=== PATIENT | female | born 1950 ===

== ENCOUNTER 2017-11-01 10:29 | Inpatient (IN) | payer OTHER ==
[~2017-11-01] VITALS: Ht 157.5 cm; Wt 75.9 kg
[2017-11-01 11:14] LABS: ABSOLUTE BASOPHIL COUNT 0 /CUMM (0.0-0.2); ABSOLUTE EOSINOPHIL COUNT 0.3 /CUMM (0.0-0.7); ABSOLUTE GRANULOCYTE CT 7.8 /CUMM (1.4-6.5); ABSOLUTE LYMPH COUNT 0.9 /CUMM (1.2-3.4); ABSOLUTE MONOCYTE COUNT 0.4 /CUMM (0.10-0.60); BASOPHIL % 0.1 % (0.0-2.0); EOSINOPHIL % 3.3 % (0-5); GRANULOCYTE % 82.9 % (42.2-75.2); HEMATOCRIT 34.3 % (37-47); MEAN CORPUSCULAR HGB 28.4 PG (27.0-31.0); MEAN CORPUSCULAR HGB CONC 33.3 G/DL (33.0-37.0); MEAN CORPUSCULAR VOLUME 85.2 FL (81.0-99.0); PLATELET COUNT 227 /CUMM (130-400); RBC DISTRIBUTION WIDTH 13.3 % (11.5-14.5); RED BLOOD CELL CT 4.03 /CUMM (4.20-5.40); WHITE BLOOD CELL COUNT 9.4 /CUMM (4.8-10.8)
--- NOTE | 2017-11-01 11:40 | RADIOLOGY REPORT ---
EXAMINATION: XR CHEST CLINICAL INFORMATION: Shortness of breath. COMPARISON: None TECHNIQUE: 2 views of the chest were obtained. FINDINGS: There are small bilateral right greater than left pleural effusions with adjacent airspace opacities most suggestive of atelectasis. There are increased interstitial markings suggesting mild interstitial edema. No definite consolidation to suggest infiltrate. The cardiomediastinal silhouette is enlarged. There is a right-sided dual-lead cardiac pacemaker in place. No pneumothorax. No acute osseous abnormalities. IMPRESSION: Small pleural effusions, right greater than left with mild pulmonary edema.
[2017-11-01] MEDS ORDERED: FUROSEMIDE40 M1 PO (14:42)
[2017-11-01] MEDS ORDERED: COZAAR50 M1 PO (14:43)
[2017-11-01] MEDS ORDERED: BISOPROLOL FUMA10 M1 PO (14:43)
[2017-11-01] MEDS ORDERED: GLIMEPIRIDE2 MG PO (14:44)
[2017-11-01] MEDS ORDERED: LANTUS SOL100 UNIT/1 SC (14:44)
[2017-11-01] MEDS ORDERED: INSULIN HUMAN SC (14:46)
--- NOTE | 2017-11-01 14:50 | ED GENERAL ADULT ---
History of Present Illness General Chief Complaint: Dyspnea (COPD, CHF, Other) Stated Complaint: SOB Source: patient, family, heating and ventilating tender Exam Limitations: no limitations Vital Signs & Intake/Output Vital Signs & Intake/Output Vital Signs Date Time Temp Pulse Resp B/P B/P Pulse O2 O2 Flow FiO2 Mean Ox Delivery Rate 11/06 1015 92 Room Air Room Air 11/06 0946 88 Room Air Room Air 11/06 0938 71 126/56 11/06 0938 71 126/56 11/06 0800 92 Nasal Room Air Cannula 11/06 0652 98.1 69 20 146/67 92 Room Air ED Intake and Output 11/07 0000 11/06 1200 Intake Total 200 Output Total 250 Balance -50 Intake, IV 0 Intake, Oral 200 Number 0 Bowel Movements Output, Urine 250 Allergies Coded Allergies: No Known Allergies (11/01/17) Triage Note: 67 YO FEMALE TO TRIAGE WITH DAUGHTER FOR EVAL OF SOB AND CHEST PAIN. PT PRIMARILY WOLOF SPEAKING DAUGHTER HERE TO TRANSLATE. STATES CHEST PAIN GOES INTO BACK. PER DAUGHTER "WE THINK SHE HAS A LUNG INFECTION" +DRY COUGH. PT TO [facility] FOR EKG Triage Nurses Notes Reviewed? yes HPI: 67 yo F with a pmhx sig for heart disease (unable to elaborate), PM placement, DM, htn presents to the ED with chest pain, cough, fever x 1 week, worsening. + fever to 38+ 2 days ago, none since. Has had cough. Increasing chest pain with exertion and cough. +SOB. Increased leg swelling as well (Shauna LAZO,Luanne) Reconcile Medications Amlodipine Besylate (Norvasc) 5 MG TABLET 1 TAB PO DAILY HTN . Atorvastatin Calcium (Lipitor) 10 MG TABLET 1 TAB PO DAILY HLD . Bisoprolol Fumarate 10 MG TABLET 1 TAB PO BID HEART . Furosemide 40 MG TABLET 1 TAB PO BID CHF . Glimepiride 2 MG TABLET 1 TAB PO DAILY DIABETES (Reported) Insulin Glargine,Hum.rec.anlog (Lantus Solostar) 100 UNIT/ML (3 ML) INSULN.PEN 20 UNIT SC QPM DIABETES (Reported) [INSULIN HUMAN] 10 UNITS SC BID DIABETES (Reported) Losartan Potassium (Cozaar) 50 MG TABLET 1 TAB PO BID HEART (Alvaro LAZO,Yariel Robert) Past History Travel History Traveled to [place] past 21 day No Medical History Any Pertinent Medical History? see below for history Cardiovascular: hypertension Endocrine: diabetes Surgical History Surgical History: non-contributory Psychosocial History What is your primary language Liberian Tobacco Use: Never used Family History Hx Contributory? No (Luanne Villatoro MD) Review of Systems Review of Systems Constitutional: Reports: chills, fever, weakness. Respiratory: Reports: cough, short of breath. Cardiovascular: Reports: chest pain, edema. GI: Reports: abdominal pain, distention, nausea, vomiting. (Luanne Villatoro MD) Physical Exam Physical Exam General Appearance: well developed/nourished Head: atraumatic Eyes: Bilateral: normal appearance. Ears, Nose, Throat: normal ENT inspection Neck: supple Respiratory: normal breath sounds, no respiratory distress, quiet respiration Cardiovascular: edema Extremities: pedal edema, swelling Core Measures ACS in differential dx? Yes CVA/TIA Diagnosis: No Sepsis Present: No Sepsis Focused Exam Completed? No (Luanne Villatoro MD) Progress Differential Diagnoses I considered the following diagnoses in my evaluation of the patient: [ liver failurek, kidney failure, pna, acs, chf] Plan of Care: Orders Procedure Date/time Status Discharge Patient 11/06 UNK Active MISSING MEDICATION FORM 11/06 UNK Active Laboratory Tests 11/06/17 0630: Anion Gap 9, Estimated GFR 49 L, BUN/Creatinine Ratio 40.9 H, Magnesium 2.1 Initial ED EKG: pacemaker rhythm, RBBB Repeat EKG: unchanged Comments: Patient with infectious URI sx in setting of pleural effusion and signs/sx of CHF. No OP follow up, will require admission given this puts patient at risk of sudden decoimpensation. Given lasix, abx. Needs inpatient care for effusions and clinical pna. Cultures were drawn (Luanne Villatoro MD) Departure Departure Disposition: STILL A PATIENT Condition: Stable Clinical Impression Primary Impression: Fluid overload Referrals: Aria Graves MD (PCP/Family) Departure Forms: Customer Survey General Discharge Information Admission Note Spoke With: Robert Ivan MD Documentation of Exam: Documentation of any treatments & extenuating circumstances including Concerns Regarding Discharge (functional status, medication knowledge or non-compliance, living conditions, etc.) that warrant an admission rather than observation: bialteral pleural effusions, signs of fluid overload wihtout ability to follow up as ooutpatient (patient from [facility], here since last week). Also with pneumonia with elevated CURB 65 score (age and BUN) which has demonstrated increased mortality in outpatient setting. (Luanne Villatoro MD) Departure Prescriptions: Current Visit Scripts Bisoprolol Fumarate 1 TAB PO BID #60 TAB . Losartan Potassium (Cozaar) 1 TAB PO BID #60 TAB Furosemide 1 TAB PO BID #60 TAB . Atorvastatin Calcium (Lipitor) 1 TAB PO DAILY #30 TAB . Amlodipine Besylate (Norvasc) 1 TAB PO DAILY #30 TAB . PA/CLOTH FINISHER Co-Sign Statement Statement: ED Attending supervision documentation- [x] I saw and evaluated the patient. I have also reviewed all the pertinent lab results and diagnostic results. I agree with the findings and the plan of care as documented in the PA's/CLOTH FINISHER's documentation. [] I have reviewed the ED Record and agree with the PA's/CLOTH FINISHER's documentation. [] Additions or exceptions (if any) to the PAs/CLOTH FINISHER's note and plan are summarized below: [] (Alvaro LAZO,Yariel Robert) Critical Care Note Critical Care Note Critical Care Time: non-applicable (Luanne Villatoro MD) ([facility]) Furosemide 40 MG 0800 & 1700 11/01 1700 AC 11/02 (Lasix) 1713 Insulin Aspart 0 TIDAC/HS 11/01 1700 AC 11/02 (NovoLOG) 2135 Laboratory Tests 11/02/17 0713: Anion Gap 10, Estimated GFR > 60, BUN/Creatinine Ratio 27.5 H, Triglycerides 105, Cholesterol 185, LDL Cholesterol, Calc 131 H, HDL Cholesterol 33 L, Cholesterol/HDL Ratio 6 H, CBC w Diff NO MAN DIFF REQ, RBC 4.12 L, MCV 84.4, MCH 27.9, MCHC 33.1, RDW 13.7, MPV 10.4, Gran % 60.6, Lymphocytes % 19.2 L, Monocytes % 9.8 H, Eosinophils % 9.9 H, Basophils % 0.5, Absolute Granulocytes 3.4, Absolute Lymphocytes 1.1 L, Absolute Monocytes 0.6, Absolute Eosinophils 0.6, Absolute Basophils 0 Initial ED EKG: pacemaker rhythm, RBBB Repeat EKG: unchanged Comments: Patient with infectious URI sx in setting of pleural effusion and signs/sx of CHF. No OP follow up, will require admission given this puts patient at risk of sudden decoimpensation. Given lasix, abx. Needs inpatient care for effusions and clinical pna. Cultures were drawn Departure Departure Disposition: STILL A PATIENT Condition: Stable Clinical Impression Primary Impression: Fluid overload Referrals: Aria Graves MD (PCP/Family) Departure Forms: Customer Survey General Discharge Information Admission Note Spoke With: Robert Ivan MD Documentation of Exam: Documentation of any treatments & extenuating circumstances including Concerns Regarding Discharge (functional status, medication knowledge or non-compliance, living conditions, etc.) that warrant an admission rather than observation: bialteral pleural effusions, signs of fluid overload wihtout ability to follow up as ooutpatient (patient from [facility], here since last week). Also with pneumonia with elevated CURB 65 score (age and BUN) which has demonstrated increased mortality in outpatient setting. Critical Care Note Critical Care Note Critical Care Time: non-applicable Urine Urobilinogen 0.2, Ur Leukocyte Esterase TRACE H, Ur Microscopic SEDIMENT EXAMINED, Urine RBC RARE, Urine WBC 1-3 H, Ur Epithelial Cells RARE, Urine Bacteria RARE H, Urine Hemoglobin SMALL H, Urine Glucose NEG 11/01/17 1626: Troponin I Cancelled 11/01/17 1105: Anion Gap 12, Estimated GFR > 60, BUN/Creatinine Ratio 31.3 H, Glucose 339 H, Hemoglobin A1c Pending, Calcium 9.5, Total Bilirubin 0.8, AST 26, ALT 16, Alkaline Phosphatase 76, Troponin I 0.02, Hyh-D-Yyatuohntop Pept 8300 H, Total Protein 7.3, Albumin 3.7, Globulin 3.6, Albumin/Globulin Ratio 1.0 L, TSH 0.524 , Free T4 1.90, CBC w Diff NO MAN DIFF REQ, RBC 4.03 L, MCV 85.2, MCH 28.4, MCHC 33.3, RDW 13.3, MPV 10.0, Gran % 82.9 H, Lymphocytes % 9.4 L, Monocytes % 4.3, Eosinophils % 3.3, Basophils % 0.1, Absolute Granulocytes 7.8 H, Absolute Lymphocytes 0.9 L, Absolute Monocytes 0.4, Absolute Eosinophils 0.3, Absolute Basophils 0 Microbiology 11/01 1631 URINE ROUT: Urine Culture - RECD 11/01 1612 LOWER RESP: Respiratory Culture - COLB 11/01 1612 LOWER RESP: Gram Stain - COLB 11/01 1608 BLOOD: Blood Culture - RECD 11/01 1601 BLOOD: Blood Culture - RECD Comments: Patient with infectious URI sx in setting of pleural effusion and signs/sx of CHF. No OP follow up, will require admission given this puts patient at risk of sudden decoimpensation. Given lasix, abx. Needs inpatient care for effusions and clinical pna. Cultures were drawn Departure Departure Disposition: STILL A PATIENT Condition: Stable Clinical Impression Primary Impression: Fluid overload Referrals: Aria Graves MD (PCP/Family) Departure Forms: Customer Survey General Discharge Information Admission Note Documentation of Exam: Documentation of any treatments & extenuating circumstances including Concerns Regarding Discharge (functional status, medication knowledge or non-compliance, living conditions, etc.) that warrant an admission rather than observation: bialteral pleural effusions, signs of fluid overload wihtout ability to follow up as ooutpatient (patient from [facility], here since last week). Also with pneumonia with elevated CURB 65 score (age and BUN) which has demonstrated increased mortality in outpatient setting.
--- NOTE | 2017-11-01 15:06 | History & Physical ---
[facility]: General Information and HPI MD Statement: I have seen and personally examined KIMI YU and documented this H&P. The patient is a 67 year old F who presented with a patient stated chief complaint of shortness of breath, cough, chills, chest pain and generalized weakness for 1 week.[]. 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 Patient was brought to ED by her daughter and patient is [place] having language barrier. Patient refused drilling field specialist for communication. Patient reported that she was in her usual state of health one-week back when she noticed chills, fever and progressive worsening shortness of breath with productive cough and chest pain. According the patient had shortness of breath has been worsened, on minimal exertion she is feeling short of breath. She also having progressively worsening cough with yellow color sputum. Patient reported fever and maximum temperature went to 38. Patient reported pain in the chest, pressure-like, radiating to back and in the shoulder that worsened with cough and not relieved by rest or medications. Patient also noticed leg swelling that is progressively worsening. She reported that she is not compliant with low- salt diet and not have cooked at home she eats it. She also reported that she used to use 2 pillows at nighttime but for last 1 week she is using 3 pillows. Patient also endorsed that sometimes she has to wake up at nighttime and will probably end of to get some fresh air as she feels short of breath. Patient also reported generalized weakness for last 1 week that's progressively worsening. Patient denied palpitation, nausea, vomiting, abdominal pain, lightheadedness, sick contact, take bite, blood in stool, blood in urine and dysuria. According the patient she had [place] in August 2016 in [facility] and permanent pacemaker was placed. Patient denied stent placement. Patient reported that she is compliant to her medications. She is living with her daughter at home. Patient reported that one of her brother has heart problem. She denied any surgeries in the past. Patient is following Dr. Graves in [place] who is her primary care physician. ED course: Vitals: Temperature 98.6, pulse 84, respiratory rate 18, blood pressure 179/68, oxygen saturation 91% on room air. Labs: WBC count 9.4, hemoglobin 11.4, hematocrit 34.3, platelet count 227, sodium 138, potassium 5.2, BUN 25, creatinine 0.8, anion gap 12, BUNs/creatinine ratio 31.3, glucose 339, calcium 9.5, AST 26, ALT 16, alkaline phosphatase 76, troponin 0.02, proBNP 8300, albumin 3.7 Allergies/Medications Allergies: Coded Allergies: No Known Allergies (11/01/17) Home Med list Bisoprolol Fumarate 10 MG TABLET 1 TAB PO BID HEART (Reported) Furosemide 40 MG TABLET 1 TAB PO DAILY WATER RETENTION (Reported) Glimepiride 2 MG TABLET 1 TAB PO DAILY DIABETES (Reported) Insulin Glargine,Hum.rec.anlog (Lantus Solostar) 100 UNIT/ML (3 ML) INSULN.PEN 20 UNIT SC QPM DIABETES (Reported) [INSULIN HUMAN] 10 UNITS SC BID DIABETES (Reported) Losartan Potassium (Cozaar) 50 MG TABLET 1 TAB PO BID HEART (Reported) Past History Travel History Traveled to [place] past 21 day No Medical History Cardiovascular: hypertension Endocrine: diabetes Review of Systems Review of Systems Constitutional: Reports: chills, fever, weakness. EENTM: Reports: no symptoms. Cardiovascular: Reports: chest pain. Denies: palpitations, syncope. Respiratory: Reports: cough, short of breath, sputum production. Denies: wheezing. GI: Denies: abdominal pain, constipation, diarrhea, nausea, vomiting. Genitourinary: Denies: discharge, frequency. Musculoskeletal: Reports: see HPI. Neurological/Psychological: Reports: no symptoms. Exam & Diagnostic Data Last 24 Hrs of Vital Signs/I&O Vital Signs Date Time Temp Pulse Resp B/P B/P Pulse O2 O2 Flow FiO2 Mean Ox Delivery Rate 11/01 1511 162/70 11/01 1303 97.0 70 26 183/68 93 Room Air 11/01 1037 98.6 84 18 179/68 91 Room Air Intake & Output 11/01 1600 11/01 0800 11/01 0000 Intake Total 0 Output Total Balance 0 Intake, Oral 0 Patient 160 lb Weight Weight Reported by Patient Measurement Method Physical Exam General Appearance Alert, Oriented X3, Cooperative Skin Temp/Moisture Exam: Warm/Dry Sepsis Skin Exam (color): Normal for Ethnicity HEENT Atraumatic, PERRLA, EOMI Neck Supple, JVD Cardiovascular Normal S1, Normal S2, systolic murmur in aortic area Lungs BIBASILAR CRACKLES Abdomen Soft, No Tenderness Neurological Normal Speech, Strength at 5/5 X4 Ext, Normal Tone Extremities B/L PEDAL EDEMA Assessment/Plan Assessment: 67-year-old female, nonsmoker with past medical history of hypertension, congestive heart failure, [place] status post permanent pacemaker in [facility] in August 2016 and hyperlipidemia came to ED with chief complaint of fever, chills, shortness of breath with productive cough and chest pain for last 1 week. Seeing the patient on telemetry floor following problems. Acute on chronic heart failure: -As patient reported that she had heart failure in the past and she had some fluid in the lung when she was in [facility]. And patient is on diuretics. We are not sure if it is diastolic or systolic heart failure. -Her proBNP is 8300 and imaging studies showed bilateral pleural effusions and mild pulmonary edema. -Continue IV Lasix 40 mg twice a day -Continue losartan 50 mg twice a day -Continue bisoprolol 10 mg twice a day -Monitor her input and output and daily weight -Echocardiogram -Follow up cardiology recommendations. -Follow up TSH and free T4. Possible pneumonia: -As patient reported fever and chills for last 1 week, possibly patient has community-acquired pneumonia. Her WBC count is within normal limits and she is afebrile on presentation. -Patient received 1 dose of ceftriaxone and doxycycline in ED -We will start her on ceftriaxone and azithromycin to cover her for community- acquired pneumonia. -Follow-up blood cultures -Follow-up sputum cultures Uncontrolled diabetes: -On admission her blood sugar level was 339 -Follow-up HbA1c -Accu-Cheks -Insulin according to sliding scale -Possible to endocrinology consult History of hypertension hyperlipidemia: -Continue losartan -Patient is not on any antihyperlipidemic medication -We will start her on Lipitor DVT prophylaxis: Mechanical and subcutaneous Lovenox CODE STATUS: Full code As Ranked By This Provider Problem List: 1. Uncontrolled diabetes mellitus 2. Congestive heart failure Core Measures/Misc (10/31) Acute Coronary Syndrome ACS Diagnosis: No Congestive Heart Failure Congestive Heart Failure Diagnosis Yes Comment on losartan Cerebrovascular Accident CVA/TIA Diagnosis: No VTE (View Protocol) VTE Risk Factors Age>40 No Mechanical VTE Prophylaxis d/t N/A MechProphylax Ordered No VTE Pharm Prophylaxis d/t NA PharmProphylax ordered Sepsis (View protocol) Sepsis Present: No If YES complete Sepsis Event Note If YES complete Sepsis Event Note Hiram Dudley 11/01/17 4882: Past History Surgical History Surgical History: non-contributory Core Measures/Misc (10/31) Sepsis (View protocol) If YES complete Sepsis Event Note If YES complete Sepsis Event Note Resident Review Statement Resident Statement: examined this patient, discussed with sales and marketing intern, agreed with sales and marketing intern, discussed with family, reviewed EMR data (avail), reviewed images, amended to note Other Findings: This is a 67 years old [place] speaking lady with past medical history of hypertension, hyperlipidemia, diabetes mellitus, coronary artery disease status post pacemaker placement in [facility] who is presenting with several weeks history of progressive shortness of breath associated with general body weakness. He reports history of orthopnea and paroxysmal nocturnal dyspnea with edema of the lower limbs. Patient volunteers that for the past several days she has been coughing using large amount of yellowish green sputum also has been having fevers spiking to 39C with reduced appetite nausea and vomiting. The patient gets her care predominantly in [facility] reports that 1-1/2 years ago had a pacemaker placement. His heart admission in the past what she describes as CHF exacerbation while in [facility]. She is reporting chest pain that is centrally located pressure-like 10 out of 10 radiating to the back which she does not know any aggravating or relieving factors. Reports abdominal pain and abdominal bloating but denies any change in urine frequency or dysuria. Patient reports that she has been taking her medications as instructed denies taking any extra salt or excessive fluids in build up to this current episode. On arrival the patient was afebrile 98.6 heart rate of 84 respiration of 18 blood pressure 179/68 and saturating 90 and 1% on room air Physical examination: Lying comfortably on the bed pleasant dominantly [place] speaking through java web user interface developer, not in acute distress Head and neck: Dry mucous membranes with distended JVD, pharyngeal erythema no exudation Chest: Bilateral crackles more dominant in the bases, expirational wheeze Heart: Regular rate and rhythm normal S1-S2 there is systolic murmur more loud on in the lower left sternal border, pulse is bounding Abdomen: Nontender moving with respiration no fluid Extremities: Pitting edema to the ankle joint no cyanosis or clubbing Labs: Normal WBC of 9400 with granulocytosis 82.9%, potassium of 5.2, glucose of 339, CXR: Small pleural effusion right more than left with mild pulmonary edema Assessment and plan 67 years old lady with cardiac history previously treated in [facility] presenting with several days history of progressive shortness of breath orthopnea paroxysmal nocturnal dyspnea with edema of the lower limbs with history suggestive of previous CHF admissions in [place] she reports fever as high as 39 C cough of yellowish sputum and sick contacts with granulocytosis but no leukocytosis. She is having distended JVD, also crackles and edema. CHF exacerbation Pneumonia/bronchitis Diabetes mellitus Hyperkalemia With the patient to telemetry floor Continuous electronic device monitor Strict I&O's/daily weights 2 g of sodium limit IV Lasix 40 mg twice daily Check TSH and free T4 Echocardiogram Cardiology consult Troponin and EKG 3 sets Accu-Cheks Insulin sliding scale/Levemir 10 units Consistent carbohydrate 1 diet, HbA1c Repeat BEP To follow potassium level Patient is full code Pain pathway Nataliia Chou MD 11/01/17 1832: Core Measures/Misc (10/31) Sepsis (View protocol) If YES complete Sepsis Event Note If YES complete Sepsis Event Note Attending MD Review Statement Attending Statement Attending MD Statement: examined this patient, discuss w/resident/PA/PANEL INSTALLER, agreed w/resident/PA/PANEL INSTALLER, reviewed EMR data (avail) Attending Assessment/Plan: 67F PMH HTN, T2DM, ?CHF, [place] speaking here with several days of shortness of breath and cough. Had a fever for the past few days, none here today. Coughing up thick yellow sputum. Has some dyspnea on exertion. On exam has bibasilar crackles, found to have signs of CHF on CXR with elevated BNP. EKG NSR with no prior for comparison. She also reports some mild mid-sternal chest pain that is non-exertional and does not radiate. Will admit patient to telemetry, Ceftriaxone/Azithromycin serial cardiac enzymes and EKG, IV Lasix, echocardiogram, I/O, cardiology consult, risk stratify, continue home meds, DVT PPx.
[2017-11-01 18:26] VITALS: BP 172/70
--- NOTE | 2017-11-01 18:33 | Admission Certification ---
Admission Certification Certification Statement - As attending physician, I certify that at the time of - admission, based on clinical presentation, severity of - symptoms, need for further diagnostic testing and - therapeutic interventions, and risk of adverse outcomes - without in-hospital treatment, in my clinical assessment, - this patient requires an acute hospital stay for a minimum - of two nights or longer. I have also considered psychsocial - factors such as support system, advanced age, financial - issues, cognitive issues, and failed out-patient treatments, - past re-admission history, safety of patient, and lack of - compliance as applicable. Specific rationale supporting this admission is: Acute CHF secondary to pneumonia
[2017-11-01 23:19] VITALS: BP 140/68
--- NOTE | 2017-11-02 07:17 | PN- Housestaff ---
[facility] Subjective Follow-up For: Acute on chronic congestive heart failure. Uncontrolled diabetes Possible community-acquired pneumonia Tele-Events Since Last Visit: Patient remained in paced rhythm with heart rate between 6069 Subjective: No overnight events. Patient remained afebrile. Seen and examined this morning. She is using 1 L of oxygen and maintaining saturation 95%. She is Spanish speaking lady. She does not understand Bengali. Not able to answer the questions. Review of Systems Constitutional: Reports: see HPI. Objective Last 24 Hrs of Vital Signs/I&O Vital Signs Date Time Temp Pulse Resp B/P B/P Pulse O2 O2 Flow FiO2 Mean Ox Delivery Rate 11/02 0839 89 Nasal 1.0L Cannula 11/02 0725 98.2 87 18 140/72 94 Nasal 2.0L Cannula 11/02 0000 Nasal 1.0L Cannula 11/01 2319 98.6 86 18 140/68 95 Nasal Cannula 11/01 2300 80 162/74 11/01 2151 97 Nasal 3.0L Cannula 11/01 2148 Nasal 3.0L Cannula 11/01 1826 98.3 71 18 172/70 97 Nasal 3.0L Cannula 11/01 1803 Nasal 3.0L Cannula 11/01 1717 98.1 70 18 179/76 90 Room Air 11/01 1511 162/70 11/01 1303 97.0 70 26 183/68 93 Room Air 11/01 1037 98.6 84 18 179/68 91 Room Air Intake & Output 11/02 1600 11/02 0800 11/02 0000 Intake Total 120 250 Output Total Balance 120 250 Intake, IV 250 Intake, Oral 120 Patient 163 lb Weight Weight Bed scale Measurement Method Physical Exam General Appearance: Alert, Oriented X3, Cooperative Skin Temp/Moisture Exam: Warm/Dry Sepsis Skin Exam (color): Normal for Ethnicity HEENT: Atraumatic, PERRLA, EOMI Neck: Supple Cardiovascular: Normal S1, Normal S2, SYSTOLIC MURMUR AT AORTIC AREA Lungs: B/L BASAL CRACKLES Abdomen: Soft, No Tenderness Neurological: Normal Speech, Strength at 5/5 X4 Ext, Normal Tone Extremities: B/L PEDAL EDEMA Assessment/Plan Assessment: 67-year-old female, nonsmoker with past medical history of hypertension, congestive heart failure, DC status post permanent pacemaker in [facility] in August 2016 and hyperlipidemia came to ED with chief complaint of fever, chills, shortness of breath with productive cough and chest pain for last 1 week. Seeing the patient on telemetry floor following problems. Acute on chronic diastolic heart failure: -As patient reported that she had heart failure in the past and she had some fluid in the lung when she was in [facility]. And patient is on diuretics. On echocardiogram patient had stage III diastolic heart failure with moderate to severe concentric left ventricular hypertrophy and ejection fraction 65%. -Her proBNP is 8300 and imaging studies showed bilateral pleural effusions and mild pulmonary edema. -Continue IV Lasix 40 mg twice a day -Continue losartan 50 mg twice a day -Continue bisoprolol 10 mg twice a day -Monitor her input and output and daily weight -Echocardiogram -Follow up cardiology recommendations. -Her TSH and free T4 are within normal limits. Possible pneumonia: -As patient reported fever and chills for last 1 week, possibly patient has community-acquired pneumonia. Her WBC count is within normal limits and she is afebrile on presentation. -Patient received 1 dose of ceftriaxone and doxycycline in ED -We will start her on ceftriaxone and azithromycin to cover her for community- acquired pneumonia. -Follow-up blood cultures -Follow-up sputum cultures Uncontrolled diabetes: -On admission her blood sugar level was 339 -HbA1c is 9.3 -Accu-Cheks, FBS 124 -Insulin according to sliding scale -Possible to endocrinology consult History of hypertension hyperlipidemia: -Continue losartan -Patient is not on any antihyperlipidemic medication -We will start her on Lipitor DVT prophylaxis: Mechanical and subcutaneous Lovenox CODE STATUS: Full code Problem List: 1. Uncontrolled diabetes mellitus 2. Congestive heart failure Pain Ratin Pain Location: none Pain Goal: Remain pain free Pain Plan: pain pathway Tomorrow's Labs & Rationales: bep/MAG Norma LAZO,Shirley 11/02/17 1242: Attending MD Review Statement Attending Statement Attending MD Statement: examined this patient, discuss w/resident/PA/AUCTION ASSISTANT, agreed w/resident/PA/AUCTION ASSISTANT, discussed with family, reviewed EMR data (avail), discussed with nursing, discussed with case mgmt, reviewed images Attending Assessment/Plan: 67-year-old Spanish speaking female past medical history of diabetes, hypertension and pacemaker is here with what appears to be acute diastolic heart failure. She was short of breath with a cough and yellow sputum Hellard elevated BNP and leg edema. We are treating her with IV Lasix and her echo shows diastolic dysfunction. In addition because of the cough, yellow sputum and fevers at home we are getting a noncontrast chest CT to clarify that there is no pneumonia. She has uncontrolled diabetes and will continue her insulin and titrate as needed.
[2017-11-02 07:25] VITALS: BP 140/72
[2017-11-02 08:40] LABS: ABSOLUTE BASOPHIL COUNT 0 /CUMM (0.0-0.2); ABSOLUTE EOSINOPHIL COUNT 0.6 /CUMM (0.0-0.7); ABSOLUTE GRANULOCYTE CT 3.4 /CUMM (1.4-6.5); ABSOLUTE LYMPH COUNT 1.1 /CUMM (1.2-3.4); ABSOLUTE MONOCYTE COUNT 0.6 /CUMM (0.10-0.60); BASOPHIL % 0.5 % (0.0-2.0); EOSINOPHIL % 9.9 % (0-5); GRANULOCYTE % 60.6 % (42.2-75.2); HEMATOCRIT 34.7 % (37-47); MEAN CORPUSCULAR HGB 27.9 PG (27.0-31.0); MEAN CORPUSCULAR HGB CONC 33.1 G/DL (33.0-37.0); MEAN CORPUSCULAR VOLUME 84.4 FL (81.0-99.0); MEAN PLATELET VOLUME 10.4 FL (7.4-10.4); PLATELET COUNT 238 /CUMM (130-400); RBC DISTRIBUTION WIDTH 13.7 % (11.5-14.5); RED BLOOD CELL CT 4.12 /CUMM (4.20-5.40); WHITE BLOOD CELL COUNT 5.6 /CUMM (4.8-10.8)
--- NOTE | 2017-11-02 10:23 | ECHOCARDIOGRAM REPORT ---
KIMI UY Age: 67 : 1950 Gender: F Exam Date: 11/01/2017 19:50 Exam Location: [facility] Ht (in): 62 Wt (lb): 160 BSA: 1.81 BP: 172 / 70 Ordering Physician: Hiram Dudley MD Referring Physician: Hiram Dudley MD Technologist: Becki Bravo [facility] Room Number: [id number] Indications: Heart failure Rhythm: Sinus Technical Quality: good FINDINGS Left Ventricle Moderate-severe concentric LVH with normal cavity size. No wall motion abnormality and LVEF estimated at 65%. Grade III diastolic dysfunction. Right Ventricle Normal size and function. Pace maker lead lead visible in RV cavity. Right Atrium Normal size. Left Atrium Mildly enlarged LA. Mitral Valve Mild-moderate MR. Aortic Valve Sclerotic aortic valve with mild stenosis. ALFRED calculated at 1.5 cm2 and mean gradient 25-30 mmHg. Mild aortic regurgitation. Tricuspid Valve moderate TR. RVSP estimated at 55mmHg. Pulmonic Valve Normal pulmonary valve. Pericardium Normal pericardium without effusion. Great Vessels Normal aortic root size. CONCLUSIONS Moderate-severe concentric LVH with normal cavity size. No wall motion abnormality and LVEF estimated at 65%. Grade III diastolic dysfunction. Pace maker lead lead visible in RV cavity. Mildly enlarged LA. Mild-moderate MR. Sclerotic aortic valve with mild stenosis. ALFRED calculated at 1.5 cm2 and mean gradient 25-30 mmHg. Mild aortic regurgitation. Moderate TR. RVSP estimated at 55mmHg. Normal pericardium without effusion. Ricky Solorzano M.D. (Electronically Signed) Final Date: 02 November 2017 10:20 MEASUREMENTS (Male / Female) Normal Values 2D ECHO LV Diastolic Diameter PLAX 4.4 cm 4.2 - 5.9 / 3.9 - 5.3 cm LV Systolic Diameter PLAX 2.3 cm 2.1 - 4.0 cm LV Fractional Shortening PLAX 47.7 % 25 - 46 % LV Ejection Fraction 2D Teich 79.3 % IVS Diastolic Thickness 1.8 cm LVPW Diastolic Thickness 1.8 cm LV Relative Wall Thickness 0.8 RV Internal Dim ED PLAX 3.2 cm 1.9 - 3.8 cm LVOT Diameter 2.0 cm Aortic Root Diameter 3.4 cm LA Systolic Diameter LX 4.2 cm 3.0 - 4.0 / 2.7 - 3.8 cm LA Volume 41.0 cm 18 - 58 / 22 - 52 cm Ascending Aorta Diameter 3.8 cm DOPPLER AV Peak Velocity 357.0 cm/s AV Peak Gradient 51.0 mmHg AV Mean Velocity 248.0 cm/s AV Mean Gradient 28.0 mmHg AV Velocity Time Integral 79.2 cm AI Deceleration [place] 430.0 cm/s AI Peak Velocity 516.0 cm/s AI Pressure Half Time 352.0 ms AI Peak Gradient 106.5 mmHg LVOT Peak Velocity 161.0 cm/s LVOT Peak Gradient 10.4 mmHg LVOT Mean Velocity 110.0 cm/s LVOT Mean Gradient 6.0 mmHg LVOT Velocity Time Integral 36.1 cm LVOT Stroke Volume 113.4 cm AV Area Cont Eq vti 1.4 cm AV Area Cont Eq pk 1.4 cm MV Peak Velocity 209.0 cm/s MV Peak Gradient 17.5 mmHg MV Mean Velocity 99.4 cm/s MV Mean Gradient 5.0 mmHg Mitral E Point Velocity 156.0 cm/s Mitral A Point Velocity 103.0 cm/s Mitral E to A Ratio 1.5 MV PHT Velocity 215.0 cm/s MV Deceleration [place] 865.0 cm/s MV Pressure Half Time 74.6 ms MV Area PHT 3.0 cm MV Deceleration Time 272.0 ms TR Peak Velocity 354.0 cm/s TR Peak Gradient 50.1 mmHg Right Atrial Pressure 5.0 mmHg Pulmonary Artery Systolic Pressure 55.1 mmHg Right Ventricular Systolic Pressure 55.1 mmHg PV Peak Velocity 110.0 cm/s PV Peak Gradient 4.8 mmHg PV Mean Velocity 74.6 cm/s PV Mean Gradient 3.0 mmHg PV Velocity Time Integral 22.4 cm LV E' Lateral Velocity 6.5 cm/s Mitral E to LV E' Lateral Ratio 23.9 LV E' Septal Velocity 5.5 cm/s Mitral E to LV E' Septal Ratio 28.6
[2017-11-02 14:24] VITALS: BP 174/75
--- NOTE | 2017-11-02 16:01 | Cons- Cardiology ---
General Information and HPI Consulting Request Date of Consult: 11/02/17 Requested By: Shirley Green MD Reason for Consult: CHF History of Present Illness: 67 year old patient, unilingual icelandic, questionned and examined with daughter at bedside who also translated. She has a history of diabetes and hypertension as well as CAD, s/p MT/PCI in 2016, while on vacation in [facility]. The details of that hospitalization are unclear, and daughter cannot say if patient had a stent or not. She did present persistent bradycardia post MT for which a pace maker was implanted. She presented to the ED on 11/01 for 1 week of productive cough and shortness of breath. She has also been complaining of orthopnea and lower extremity edema. She denies chest pains however. BNP was 8300 upon admission and CXR showed pulmonary edema. Echocardiogram done today demonstrates high LV filling pressures as well as mild aortic stenosis and mild-moderate mitral regurgitation. Allergies/Medications Allergies: Coded Allergies: No Known Allergies (11/01/17) Home Med List: Bisoprolol Fumarate 10 MG TABLET 1 TAB PO BID HEART (Reported) Furosemide 40 MG TABLET 1 TAB PO DAILY WATER RETENTION (Reported) Glimepiride 2 MG TABLET 1 TAB PO DAILY DIABETES (Reported) Insulin Glargine,Hum.rec.anlog (Lantus Solostar) 100 UNIT/ML (3 ML) INSULN.PEN 20 UNIT SC QPM DIABETES (Reported) [INSULIN HUMAN] 10 UNITS SC BID DIABETES (Reported) Losartan Potassium (Cozaar) 50 MG TABLET 1 TAB PO BID HEART (Reported) Current Medications: Current Medications Sig/Elvia Start time Last Medication Dose Route Stop Time Status Admin Acetaminophen 650 MG Q6P PRN 11/01 1845 AC PO Acetaminophen 1,000 MG Q6P PRN 11/01 1845 AC IV Albuterol Sulfate 3 ML Q4P PRN 11/01 2200 AC 11/02 INH 0844 Azithromycin 500 MG 2100 11/02 2099 AC Sodium Chloride 250 ML IV Azithromycin 500 MG DAILY 11/02 0900 DC Sodium Chloride 250 ML IV Azithromycin 500 MG ONCE ONE 11/01 1900 DC 11/01 Sodium Chloride 250 ML IV 11/014 Bisacodyl 5 MG DAILY 11/02 0930 AC 11/02 PO 1256 Bisoprolol Fumarate 10 MG BID 11/01 2100 AC 11/02 PO 1003 Ceftriaxone Sodium 1,000 MG DAILY 11/02 0900 AC 11/02 IV 0928 Enoxaparin Sodium 40 MG DAILY 11/02 0900 AC 11/02 SC 0947 Furosemide 40 MG 0800 & 1700 11/01 1700 11/02 IV 0927 Furosemide 0 .STK-MED ONE 11/01 1625 DC IV Influenza Virus 0.5 ML ONCE ONE 11/01 1830 DC Vaccine IM 11/01 1831 Insulin Aspart 0 TIDAC/HS 11/01 1700 AC 11/02 SC 1256 Insulin Detemir 20 UNITS QPM 11/01 2100 AC 11/01 SC 2136 Losartan Potassium 50 MG BID 11/01 2100 AC 11/02 PO 0934 Polyethylene Glycol 17 GM DAILY 11/02 0930 AC 11/02 PO 1003 Senna/Docusate Sodium 1 TAB BID 11/02 2100 AC PO Senna/Docusate Sodium 1 TAB BID PRN 11/02 1030 AC PO 11/02 2058 Past History Travel History Traveled to [place] past 21 day No Medical History Cardiovascular: hypertension Endocrine: diabetes Surgical History Surgical History: non-contributory Psychosocial History Where Do You Live? Home Smoking Status: Never Smoked Exam & Diagnostic Data Vital Signs and I&O Vital Signs Date Time Temp Pulse Resp B/P B/P Pulse O2 O2 Flow FiO2 Mean Ox Delivery Rate 11/02 1424 98.5 79 18 174/75 94 Nasal 1.0L Cannula 11/02 0934 77 160/70 11/02 0839 89 Nasal 1.0L Cannula 11/02 0800 92 Nasal 1.0L Cannula 11/02 0725 98.2 87 18 140/72 94 Nasal 2.0L Cannula 11/02 0000 Nasal 1.0L Cannula 11/01 2319 98.6 86 18 140/68 95 Nasal Cannula 11/01 2300 80 162/74 11/01 2151 97 Nasal 3.0L Cannula 11/01 2148 Nasal 3.0L Cannula 11/01 1826 98.3 71 18 172/70 97 Nasal 3.0L Cannula 11/01 1803 Nasal 3.0L Cannula 11/01 1717 98.1 70 18 179/76 90 Room Air Intake & Output 11/02 1600 11/02 0800 11/02 0000 11/01 1600 11/01 0800 11/01 0000 Intake Total 600 120 250 0 Output Total Balance 600 120 250 0 Intake, IV 250 Intake, Oral 600 120 0 Patient 163 lb 160 lb Weight Weight Bed scale Reported by Patient Measurement Method Physical Exam General Appearance: no apparent distress, alert, awake, comfortable Head: atraumatic Eyes: Bilateral: PERRL, EOMI. Ears, Nose, Throat: normal ENT inspection Neck: normal inspection, full range of motion, trachea mid line (no JVD) Respiratory: chest non-tender, rhonchi Cardiovascular: regular rate/rhythm, systolic murmur (2/6 LUSB) Gastrointestinal: normal bowel sounds, soft, non-tender Extremities: normal capillary refill (trace ankle edema) Neurologic/Psych: no motor/sensory deficits, awake, alert, oriented x 3, normal mood/affect Labs/Keith Results: Laboratory Tests 11/02 11/01 11/01 0713 2340 1704 Chemistry Sodium (137 - 145 mmol/L) 141 Potassium (3.5 - 5.1 mmol/L) 4.0 Chloride (98 - 107 mmol/L) 103 Carbon Dioxide (22 - 30 mmol/L) 28 Anion Gap (5 - 16) 10 BUN (7 - 17 mg/dL) 22 H Creatinine (0.5 - 1.0 mg/dL) 0.8 Estimated GFR (>60 ml/min) > 60 BUN/Creatinine Ratio (7 - 25 %) 27.5 H Troponin I (< 0.11 ng/ml) 0.04 0.03 Triglycerides (<150 mg/dL) 105 Cholesterol (<200 MG/DL) 185 LDL Cholesterol, Calc (65 - 129 mg/dL) 131 H HDL Cholesterol (40 - 60 mg/dL) 33 L Cholesterol/HDL Ratio (0.00 - 4.23 %) 6 H Hematology CBC w Diff NO MAN DIFF REQ WBC (4.8 - 10.8 /CUMM) 5.6 RBC (4.20 - 5.40 /CUMM) 4.12 L Hgb (12.0 - 16.0 G/DL) 11.5 L Hct (37 - 47 %) 34.7 L MCV (81.0 - 99.0 FL) 84.4 MCH (27.0 - 31.0 PG) 27.9 MCHC (33.0 - 37.0 G/DL) 33.1 RDW (11.5 - 14.5 %) 13.7 Plt Count (130 - 400 /CUMM) 238 MPV (7.4 - 10.4 FL) 10.4 Gran % (42.2 - 75.2 %) 60.6 Lymphocytes % (20.5 - 51.1 %) 19.2 L Monocytes % (1.7 - 9.3 %) 9.8 H Eosinophils % (0 - 5 %) 9.9 H Basophils % (0.0 - 2.0 %) 0.5 Absolute Granulocytes (1.4 - 6.5 /CUMM) 3.4 Absolute Lymphocytes (1.2 - 3.4 /CUMM) 1.1 L Absolute Monocytes (0.10 - 0.60 /CUMM) 0.6 Absolute Eosinophils (0.0 - 0.7 /CUMM) 0.6 Absolute Basophils (0.0 - 0.2 /CUMM) 0 11/01 11/01 1631 1626 Chemistry Troponin I Cancelled Urines Urine Color (YEL,AMB,STR) STRAW Urine Clarity (CLEAR) CLEAR Urine pH (5.0 - 8.0) 6.0 Ur Specific [place] (1.001 - 1.035) 1.020 Urine Protein (NEG,<30 MG/DL) 100 H Urine Ketones (NEG) NEG Urine Nitrite (NEG) NEG Urine Bilirubin (NEG) NEG Urine Urobilinogen (0.1 - 1.0 EU/dl) 0.2 Ur Leukocyte Esterase (NEG) TRACE H Ur Microscopic SEDIMENT EXAMINED Urine RBC (0 - 5 /HPF) RARE Urine WBC (0 - 2 /HPF) 1-3 H Ur Epithelial Cells (NONE,FEW) RARE Urine Bacteria (NEG/NONE) RARE H Urine Hemoglobin (NEG) SMALL H Urine Glucose (N MG/DL) NEG 11/01 1105 Chemistry Sodium (137 - 145 mmol/L) 138 Potassium (3.5 - 5.1 mmol/L) 5.2 H Chloride (98 - 107 mmol/L) 104 Carbon Dioxide (22 - 30 mmol/L) 22 Anion Gap (5 - 16) 12 BUN (7 - 17 mg/dL) 25 H Creatinine (0.5 - 1.0 mg/dL) 0.8 Estimated GFR (>60 ml/min) > 60 BUN/Creatinine Ratio (7 - 25 %) 31.3 H Glucose (65 - 99 mg/dL) 339 H Hemoglobin A1c (4.2 - 5.8 %) 9.3 H Calcium (8.4 - 10.2 mg/dL) 9.5 Total Bilirubin (0.2 - 1.3 mg/dL) 0.8 AST (14 - 36 U/L) 26 ALT (9 - 52 U/L) 16 Alkaline Phosphatase (<127 U/L) 76 Troponin I (< 0.11 ng/ml) 0.02 Dzi-U-Thmahkqeyif Pept (<125 pg/mL) 8300 H Total Protein (6.3 - 8.2 g/dL) 7.3 Albumin (3.5 - 5.0 g/dL) 3.7 Globulin (1.9 - 4.2 gm/dL) 3.6 Albumin/Globulin Ratio (1.1 - 2.2 %) 1.0 L TSH (0.270 - 4.200 uIU/mL) 0.524 Free T4 (0.78 - 2.44 ng/dL) 1.90 Hematology CBC w Diff NO MAN DIFF REQ WBC (4.8 - 10.8 /CUMM) 9.4 RBC (4.20 - 5.40 /CUMM) 4.03 L Hgb (12.0 - 16.0 G/DL) 11.4 L Hct (37 - 47 %) 34.3 L MCV (81.0 - 99.0 FL) 85.2 MCH (27.0 - 31.0 PG) 28.4 MCHC (33.0 - 37.0 G/DL) 33.3 RDW (11.5 - 14.5 %) 13.3 Plt Count (130 - 400 /CUMM) 227 MPV (7.4 - 10.4 FL) 10.0 Gran % (42.2 - 75.2 %) 82.9 H Lymphocytes % (20.5 - 51.1 %) 9.4 L Monocytes % (1.7 - 9.3 %) 4.3 Eosinophils % (0 - 5 %) 3.3 Basophils % (0.0 - 2.0 %) 0.1 Absolute Granulocytes (1.4 - 6.5 /CUMM) 7.8 H Absolute Lymphocytes (1.2 - 3.4 /CUMM) 0.9 L Absolute Monocytes (0.10 - 0.60 /CUMM) 0.4 Absolute Eosinophils (0.0 - 0.7 /CUMM) 0.3 Absolute Basophils (0.0 - 0.2 /CUMM) 0 Assessment/Plan Assessment/Plan CHF in the setting of bronchitis +/- lower respiratory tract infection in patient with diastolic dysfunction/mild-moderate MR and history of MT in 2017. Plan: Continue lasix 40 mg IV bid. Begin ASA 81 mg daily. keep other medications as is. Pharmacological stress once patient stabilized. Consult Acknowledgment - Thank you for your consult request.
--- NOTE | 2017-11-02 16:37 | CT SCAN REPORT ---
EXAMINATION: CT CHEST WITHOUT CONTRAST CLINICAL INFORMATION: Shortness of breath, phlegm. Presumptive diagnosis of pneumonia. COMPARISON: Chest x-ray dated 11/01/2017. TECHNIQUE: Multidetector volumetric CT imaging of the chest was obtained noncontrast. Sagittal and coronal reformations were obtained. DLP: 208.88 mGy-cm. FINDINGS: LUNGS: Low lung volumes are seen with dependent atelectatic changes seen in the right lower lobe. No dense consolidation is seen. Minimal biapical pleural-based reticulation is seen, consistent with scarring. There are a few scattered bilateral solid noncalcified 2-4 mm solid noncalcified pulmonary nodules seen, of doubtful clinical significance evaluation of the lungs is limited due to the low lung volumes and mild breathing motion artifact. No focal lung nodule or mass. No effusion or pneumothorax. Central airways patent. CARDIOVASCULAR STRUCTURES: Right pectoral pacer generator is in place, producing extensive surrounding beam hardening artifact, limiting assessment. Right atrial and right ventricular pacer leads are in place. Ascending aorta is aneurysmal, measuring 4.3 cm and the descending aorta 2.8 cm at the level of the right main pulmonary artery. Aortic arch just beyond the takeoff of the left subclavian artery measures 3.2 cm. Mild atherosclerotic calcifications of the aorta and mitral annular calcifications is seen. The heart is enlarged with primarily enlargement of the left heart chambers. No pericardial effusion. The main, right and left main pulmonary arteries are also enlarged with the main pulmonary artery measuring 3.5 cm in the right main pulmonary artery 2.9 cm and the left main pulmonary artery 2.8 cm. Findings raise the suspicion of pulmonary arterial hypertension. LYMPHATIC STRUCTURES: No mediastinal, hilar or axillary adenopathy. THYROID GLAND: Right lobe of the thyroid gland is enlarged with substernal extension of an approximately 2 cm nodular area of the inferior right lobe. UPPER ABDOMEN: There is an incompletely included 3.0 x 3.5 cm cyst in the upper pole of the left kidney. Included portions of the solid organs in the upper abdomen otherwise unremarkable. BONES: Moderate vertebral endplate spurring is seen throughout the mid and lower thoracic spine. Mild convex right thoracolumbar scoliosis is seen. No suspicious focal findings. IMPRESSION: 1. Low lung volumes are seen with dependent atelectasis in the right lower lobe. No focal consolidation seen to suspect a pneumonia. 2. A few scattered tiny bilateral solid noncalcified nodular densities are seen, doubtful clinical significance. Evaluation overall is limited due to motion artifact and low lung volumes. Assuming these findings are truly incidental, and if the patient has no known underlying risk factors, no routine follow-up is recommended. If the patient has underlying risk factors, optional CT scan follow-up in 12 months is recommended. 3. Cardiomegaly and ascending aortic aneurysm with maximal AP diameter of 4.3 cm. 4. Enlarged central pulmonary arteries, raising the suspicion of pulmonary arterial hypertension. Close clinical correlation is requested. 5. Enlarged thyroid gland with nodular substernal extension of the right lobe. Recommend further evaluation with thyroid ultrasound. 6. Small cyst in upper pole of left kidney.
[2017-11-02 23:10] VITALS: BP 158/70
[2017-11-03 06:37] VITALS: BP 171/69
--- NOTE | 2017-11-03 08:13 | PN- Housestaff ---
[facility]: Subjective Follow-up For: Acute hypoxic respiratory failure due to acute on chronic diastolic congestive heart failure. Uncontrolled diabetes Tele-Events Since Last Visit: Patient remained in paced rhythm with heart rate between 6093 Subjective: No overnight events. Patient remained afebrile,. Seen and examined this morning. She is Armenian speaking lady. She denied chest pain, palpitation, nausea, vomiting, chill, fever and abdominal pain. Patient reported cough and she is bringing intermittent phlegm. Patient reported some epigastric pain this morning and after taking pain medication her pain has been relieved. Review of Systems Constitutional: Denies: chills, fever. EENTM: Reports: no symptoms. Cardiovascular: Denies: chest pain, palpitations, syncope. Respiratory: Reports: cough, sputum production. Denies: short of breath. Gastrointestinal: Denies: abdominal pain, constipation, diarrhea, nausea, vomiting. Genitourinary: Reports: no symptoms. Musculoskeletal: Reports: no symptoms. Neurological/Psychological: Reports: no symptoms. Objective Last 24 Hrs of Vital Signs/I&O Vital Signs Date Time Temp Pulse Resp B/P B/P Pulse O2 O2 Flow FiO2 Mean Ox Delivery Rate 11/03 0757 89 Room Air 11/03 0637 98.4 78 20 171/69 92 Room Air 11/02 2310 98.5 91 18 158/70 92 Nasal Cannula 11/02 2135 86 154/86 11/02 2123 Nasal 1.0L Cannula 11/02 1834 93 Nasal 1.0L Cannula 11/02 1424 98.5 79 18 174/75 94 Nasal 1.0L Cannula 11/02 0934 77 160/70 11/02 0839 89 Nasal 1.0L Cannula Intake & Output 11/03 1600 11/03 0800 11/03 0000 Intake Total 340 200 Output Total 600 Balance -260 200 Intake, IV 100 Intake, Oral 240 200 Output, Urine 600 Patient 165 lb Weight Weight Bed scale Measurement Method Physical Exam General Appearance: Alert, Oriented X3, Cooperative Skin Temp/Moisture Exam: Warm/Dry Sepsis Skin Exam (color): Normal for Ethnicity HEENT: Atraumatic, PERRLA, EOMI Neck: Supple Cardiovascular: Normal S1, Normal S2, systolic murmer at aortic area Lungs: Clear to Auscultation Abdomen: Soft, No Tenderness Neurological: Normal Speech, Strength at 5/5 X4 Ext, Normal Tone Extremities: No Edema Assessment/Plan Assessment: 67-year-old female, nonsmoker with past medical history of hypertension, congestive heart failure, [place] status post permanent pacemaker in [facility] in August 2016 and hyperlipidemia came to ED with chief complaint of fever, chills, shortness of breath with productive cough and chest pain for last 1 week. Seeing the patient on telemetry floor following problems. Acute hypoxic respiratory failure due to acute on chronic diastolic heart failure: -Patient is desaturating to 88% on room air that is why she was getting supplemental oxygen. Today she is on 2 L of oxygen and maintaining saturation 92%. -As patient reported that she had heart failure in the past and she had some fluid in the lung when she was in [facility]. And patient is on diuretics. On echocardiogram patient had stage III diastolic heart failure with moderate to severe concentric left ventricular hypertrophy and ejection fraction 65%. -Her proBNP is 8300 and imaging studies showed bilateral pleural effusions and mild pulmonary edema. -Continue IV Lasix 40 mg twice a day -Continue losartan 50 mg twice a day -Continue bisoprolol 10 mg twice a day -Monitor her input and output and daily weight -Echocardiogram -Follow up cardiology recommendations. -Her TSH and free T4 are within normal limits. Possible pneumonia: -As patient reported fever and chills for last 1 week, possibly patient has community-acquired pneumonia. Her WBC count is within normal limits and she is afebrile on presentation. -Her azithromycin and ceftriaxone has been discontinued as her CT scan chest remained negative for pneumonia. Patient received 2 days of antibiotics. -Her blood and urine culture remain negative. -Her CT scan chest remained negative for any pneumonia. Uncontrolled diabetes: -On admission her blood sugar level was 339 -HbA1c is 9.3 -Accu-Cheks, FBS 97 -Insulin according to sliding scale -Possible to endocrinology consult History of hypertension hyperlipidemia: -Continue losartan -Patient is not on any antihyperlipidemic medication -We will start her on Lipitor DVT prophylaxis: Mechanical and subcutaneous Lovenox CODE STATUS: Full code Problem List: 1. Uncontrolled diabetes mellitus 2. Congestive heart failure Pain Ratin Pain Location: none Pain Goal: Remain pain free Pain Plan: pain pathway Tomorrow's Labs & Rationales: bep/mag Norma LAZO,Shirley 11/03/17 0954: Attending MD Review Statement Attending Statement Attending MD Statement: examined this patient, discuss w/resident/PA/SECURITIES DEALER, agreed w/resident/PA/SECURITIES DEALER, reviewed EMR data (avail), discussed with nursing, discussed with case mgmt, reviewed images Attending Assessment/Plan: Patient continues to feel very short of breath, she has acute hypoxemic respiratory failure and her saturation off oxygen is 88%. The CT did not show any pneumonia and we are treating her for acute diastolic heart failure with underlying diabetes and hypertension. We will continue the IV Lasix and talk to cardiology today.
[2017-11-03 15:05] VITALS: BP 142/62
--- NOTE | 2017-11-03 15:20 | PN- Student ---
Subjective Subjective: This is a 67-year-old female, unilingual [place]ian, with past medical history of hypertension, congestive heart failure, [place] status post permanent pacemaker in [facility] in August 2016 and hyperlipidemia came to ED 2 days ago with chief complaint of COPD exacerbation. The patient was recently started on Aspirin 81 mg PO. The conversation was translated by a mixer dry food products. On presentation, the patient reports doing better. She states that her cough and sputum production have subsided. However, she complains of a burning sensation at her epigastric area radiating to the back with a "poisoning taste" in her mouth. The patient recalls that she was diagnosed with "stomach issue" in [facility] that is improved with "stomach medicine". The pain is only exacerbated after meals. The patient denies fever, fatigue, headache, stomach pain, decreased appetite, numbness, tingling, abnormal urinary or bowel movements. No other complaints noted. Objective Objective: Current Medications Sig/Elvia Start time Last Medication Dose Route Stop Time Status Admin Acetaminophen 650 MG Q6P PRN 11/01 184 AC PO Acetaminophen 1,000 MG Q6P PRN 11/01 1845 AC 11/03 IV 0617 Albuterol Sulfate 3 ML Q4P PRN 11/01 2200 AC 11/02 INH 1832 Aspirin 81 MG DAILY 11/03 09 AC 11/03 PO 0955 Azithromycin 500 MG 11/02 DC 11/02 Sodium Chloride 250 ML IV 2139 Benzonatate 100 MG TID 11/02 1815 AC 11/03 PO 1244 Bisacodyl 5 MG DAILY 11/02 0930 AC 11/03 PO 0956 Bisoprolol Fumarate 10 MG BID 11/01 2099 AC 11/03 PO 0956 Ceftriaxone Sodium 1,000 MG DAILY 11/02 09 DC 11/02 IV 0928 Enoxaparin Sodium 40 MG DAILY 11/02 09 AC 11/03 SC 1014 Furosemide 40 MG 0800 & 1700 11/01 1700 AC 11/03 IV 0956 Influenza Virus 0 .STK-MED ONE 11/03 0957 DC Vaccine IM Insulin Aspart 0 TIDAC/HS 11/01 1700 AC 11/03 SC 1244 Insulin Detemir 20 UNITS QPM 11/01 2099 AC 11/02 SC 2135 Losartan Potassium 50 MG BID 11/01 2099 AC 11/03 PO 0956 Magnesium Oxide 400 MG ONE ONE 11/03 0815 DC 11/03 PO 11/03 0816 1016 Melatonin 5 MG AT BEDTIME 11/02 2099 11/02 PO 2134 Omeprazole 40 MG DAILY AC 11/03 929 AC 11/03 PO 0959 Polyethylene Glycol 17 GM DAILY 11/02 929 AC 11/03 PO 0956 Potassium Chloride 20 MEQ ONCE ONE 11/03 0815 DC 11/03 PO 11/03 0816 1017 Senna/Docusate Sodium 1 TAB BID 11/02 2099 AC 11/03 PO 0956 Senna/Docusate Sodium 1 TAB BID PRN 11/02 1030 TN PO 11/02 2058 Results Results: Laboratory Tests 11/03/17 0607: Anion Gap 9, Estimated GFR 55 L, BUN/Creatinine Ratio 27.0 H, Magnesium 1.7, Troponin I 0.02 11/02/17 0713: Anion Gap 10, Estimated GFR > 60, BUN/Creatinine Ratio 27.5 H, Triglycerides 105, Cholesterol 185, LDL Cholesterol, Calc 131 H, HDL Cholesterol 33 L, Cholesterol/HDL Ratio 6 H, CBC w Diff NO MAN DIFF REQ, RBC 4.12 L, MCV 84.4, MCH 27.9, MCHC 33.1, RDW 13.7, MPV 10.4, Gran % 60.6, Lymphocytes % 19.2 L, Monocytes % 9.8 H, Eosinophils % 9.9 H, Basophils % 0.5, Absolute Granulocytes 3.4, Absolute Lymphocytes 1.1 L, Absolute Monocytes 0.6, Absolute Eosinophils 0.6, Absolute Basophils 0 11/01/17 2340: Troponin I 0.04 11/01/17 1704: Troponin I 0.03 11/01/17 1631: Urine Color STRAW, Urine Clarity CLEAR, Urine pH 6.0, Ur Specific [place] 1.020, Urine Protein 100 H, Urine Ketones NEG, Urine Nitrite NEG, Urine Bilirubin NEG, Urine Urobilinogen 0.2, Ur Leukocyte Esterase TRACE H, Ur Microscopic SEDIMENT EXAMINED, Urine RBC RARE, Urine WBC 1-3 H, Ur Epithelial Cells RARE, Urine Bacteria RARE H, Urine Hemoglobin SMALL H, Urine Glucose NEG 11/01/17 1626: Troponin I Cancelled 11/01/17 1105: Anion Gap 12, Estimated GFR > 60, BUN/Creatinine Ratio 31.3 H, Glucose 339 H, Hemoglobin A1c 9.3 H, Calcium 9.5, Total Bilirubin 0.8, AST 26, ALT 16, Alkaline Phosphatase 76, Troponin I 0.02, Gha-K-Kzsucqymerp Pept 8300 H, Total Protein 7.3, Albumin 3.7, Globulin 3.6, Albumin/Globulin Ratio 1.0 L, TSH 0.524 , Free T4 1.90, CBC w Diff NO MAN DIFF REQ, RBC 4.03 L, MCV 85.2, MCH 28.4, MCHC 33.3, RDW 13.3, MPV 10.0, Gran % 82.9 H, Lymphocytes % 9.4 L, Monocytes % 4.3, Eosinophils % 3.3, Basophils % 0.1, Absolute Granulocytes 7.8 H, Absolute Lymphocytes 0.9 L, Absolute Monocytes 0.4, Absolute Eosinophils 0.3, Absolute Basophils 0 Microbiology 11/01 1631 URINE ROUT: Urine Culture - COMP 11/01 1612 LOWER RESP: Respiratory Culture - CAN Cancelled: SPECIMEN NOT RECEIVED IN LABORATORY 11/01 161 LOWER RESP: Gram Stain - CAN Cancelled: SPECIMEN NOT RECEIVED IN LABORATORY 11/01 1608 BLOOD: Blood Culture - RES 11/01 1601 BLOOD: Blood Culture - RES PHYSICAL EXAM Last 24hrs of Vital Signs Vital Signs Date Time Temp Pulse Resp B/P B/P Pulse O2 O2 Flow FiO2 Mean Ox Delivery Rate 11/03 1505 98.1 66 20 142/62 92 Nasal 1.5L Cannula 11/03 0800 93 Nasal 2.0L Cannula 11/03 0757 89 Room Air 11/03 0637 98.4 78 20 171/69 92 Room Air 11/02 2310 98.5 91 18 158/70 92 Nasal Cannula 11/02 2135 86 154/86 11/02 2123 Nasal 1.0L Cannula 11/02 1834 93 Nasal 1.0L Cannula Physical Exam General Appearance Alert, Oriented X3, Cooperative, No Acute Distress Skin No Rashes, No Breakdown, No Significant Lesion HEENT Atraumatic, PERRLA Neck Supple, No JVD, No thryomegaly Cardiovascular Regular Rate, Normal S1, Normal S2 Lungs Clear to Auscultation, Normal Air Movement Abdomen Normal Bowel Sounds, Soft, No Tenderness (epigastric tenderness) Neurological Normal Speech, Strength at 5/5 X4 Ext, Normal Tone, Sensation Intact Extremities No Clubbing, No Cyanosis, No Edema, Normal Pulses, No Tenderness/ Swelling Last 24hrs of Labs/Keith Laboratory Tests 11/03/17 0607: Anion Gap 9, Estimated GFR 55 L, BUN/Creatinine Ratio 27.0 H, Magnesium 1.7, Troponin I 0.02 Assessment/Plan Assessment: This is a 67-year-old female, unilingual [place], with past medical history of hypertension, congestive heart failure, [place] status post permanent pacemaker in [facility] in August 2016 and hyperlipidemia came to ED 2 days ago with chief complaint of COPD exacerbation. Stable vitals. Afebrile. #Pneumonia - Negative chest CT scan; unlikely pneumonia - Sputum culture pending #COPD exacerbation - 2L of O2 supplement - Continue IV Lasix - Dba Developer patient on incentive spirometry #Epigastric pain - Negative EKG and negative trop - Likely GERD vs peptic ulcers - Given Omeprazole PO - Continue monitoring
--- NOTE | 2017-11-03 17:06 | Patient Discharge Instructions ---
Discharge Instructions General Discharge Information You were seen/treated for: CHF Exacerbation Special Instructions: Please call and make a F/U with your PCP within one week after discharge Please call and make a F/U with your Supervisor Prop Making Dr Moncada contact provided Acute Coronary Syndrome Inclusion Criteria At DC or during hospital stay patient has or had the following: ACS DIAGNOSIS No Discharge Core Measures Meds if any: Prescribed or Continued at Discharge Meds if any: NOT Prescribed or Continued at Discharge Congestive Heart Failure Inclusion Criteria At DC or during hospital stay patient has or had the following: CHF DIAGNOSIS Yes Discharge Core Measures Meds if any: Prescribed or Continued at Discharge SURI/ARB for EF <40% Yes Meds if any: NOT Prescribed or Continued at Discharge Cerebrovascular accident Inclusion Criteria At DC or during hospital stay patient has or had the following: CVA/TIA Diagnosis No Discharge Core Measures Meds if any: Prescribed or Continued at Discharge Meds if any: NOT Prescribed or Continued at Discharge Venous thromboembolism Inclusion Criteria VTE Diagnosis No VTE Type NONE VTE Confirmed by (Test) NONE Discharge Core Measures - Per Current guidelines, there needs to be overlap - treatment for the first 5 days of Warfarin therapy. - If discharged on Warfarin prior to 5 days of - overlap therapy, the patient will need to be - assessed for post discharge needs including - *Post discharge parental anticoagulation - *Warfarin and/or parental anticoagulation education - *Follow up date to check INR post discharge At least 5 days overlap therapy as Inpatient No Meds if any: Prescribed or Continued at Discharge Note: Overlap Therapy is Warfarin and Anticoagulant Meds if any: NOT Prescribed or Continued at Discharge
--- NOTE | 2017-11-03 20:50 | PN- Cardiology ---
Subjective Subjective: Patient is feeling much better today,much less orthopnea. Denies chest pains. No acute events. Objective Vital Signs and I&Os Vital Signs Date Time Temp Pulse Resp B/P B/P Pulse O2 O2 Flow FiO2 Mean Ox Delivery Rate 11/03 2045 95 Nasal 1.0L Cannula 11/03 1600 Nasal 1.0L Cannula 11/03 1505 98.1 66 20 142/62 92 Nasal 1.5L Cannula 11/03 0800 93 Nasal 2.0L Cannula 11/03 0757 89 Room Air 11/03 0637 98.4 78 20 171/69 92 Room Air 11/02 2310 98.5 91 18 158/70 92 Nasal Cannula 11/02 2135 86 154/86 11/02 212 Nasal 1.0L Cannula Intake & Output 11/03 1600 11/03 0800 11/03 0000 11/02 1600 11/02 0800 11/02 0000 Intake Total 800 340 200 600 120 250 Output Total 1500 600 Balance -700 -260 200 600 120 250 Intake, IV 100 250 Intake, Oral 800 240 200 600 120 Output, Urine 1500 600 Patient 165 lb 163 lb Weight Weight Bed scale Bed scale Measurement Method Physical Exam: General Appearance: no apparent distress, alert, awake, comfortable Ears, Nose, Throat: normal ENT inspection Neck: normal inspection, full range of motion, trachea mid line (no JVD) Respiratory: chest non-tender, rhonchi Cardiovascular: regular rate/rhythm, systolic murmur (2/6 LUSB) Gastrointestinal: normal bowel sounds, soft, non-tender Extremities: normal capillary refill, no edema Current Medications: Current Medications Sig/Elvia Start time Last Medication Dose Route Stop Time Status Admin Acetaminophen 650 MG Q6P PRN 11/01 184 AC PO Acetaminophen 1,000 MG Q6P PRN 11/01 1845 AC 11/03 IV 0617 Albuterol Sulfate 3 ML Q4P PRN 11/01 2199 AC 11/02 INH 1832 Aspirin 81 MG DAILY 11/03 899 AC 11/03 PO 0955 Azithromycin 500 MG 2100 11/02 2099 DC 11/02 Sodium Chloride 250 ML IV 213 Benzonatate 100 MG TID 11/02 181 AC 11/03 PO 1244 Bisacodyl 5 MG DAILY 11/02 929 AC 11/03 PO 0956 Bisoprolol Fumarate 10 MG BID 11/01 2099 AC 11/03 PO 0956 Ceftriaxone Sodium 1,000 MG DAILY 11/02 0900 DC 11/02 IV 0928 Enoxaparin Sodium 40 MG DAILY 11/02 0900 AC 11/03 SC 1014 Furosemide 40 MG 0800 & 1700 11/01 1700 AC 11/03 IV 1759 Influenza Virus 0 .STK-MED ONE 11/03 0957 DC Vaccine IM Insulin Aspart 0 TIDAC/HS 11/01 1700 AC 11/03 SC 1244 Insulin Detemir 20 UNITS QPM 11/01 2099 AC 11/02 SC 2135 Losartan Potassium 50 MG BID 11/01 2099 AC 11/03 PO 0956 Magnesium Oxide 400 MG ONE ONE 11/03 0815 DC 11/03 PO 11/03 0816 1016 Melatonin 5 MG AT BEDTIME 11/02 2099 AC 11/02 PO 213 Omeprazole 40 MG DAILY AC 11/03 929 AC 11/03 PO 0959 Polyethylene Glycol 17 GM DAILY 11/02 929 AC 11/03 PO 0956 Potassium Chloride 20 MEQ ONCE ONE 11/03 814 DC 11/03 PO 11/03 0816 1017 Senna/Docusate Sodium 1 TAB BID 11/02 2099 AC 11/03 PO 0956 Senna/Docusate Sodium 1 TAB BID PRN 11/02 1030 DC PO 11/02 2058 Results Last 48 Hrs of Labs/Mics: Laboratory Tests 11/03/17 0607: Anion Gap 9, Estimated GFR 55 L, BUN/Creatinine Ratio 27.0 H, Magnesium 1.7, Troponin I 0.02 11/02/17 0713: Anion Gap 10, Estimated GFR > 60, BUN/Creatinine Ratio 27.5 H, Triglycerides 105, Cholesterol 185, LDL Cholesterol, Calc 131 H, HDL Cholesterol 33 L, Cholesterol/HDL Ratio 6 H, CBC w Diff NO MAN DIFF REQ, RBC 4.12 L, MCV 84.4, MCH 27.9, MCHC 33.1, RDW 13.7, MPV 10.4, Gran % 60.6, Lymphocytes % 19.2 L, Monocytes % 9.8 H, Eosinophils % 9.9 H, Basophils % 0.5, Absolute Granulocytes 3.4, Absolute Lymphocytes 1.1 L, Absolute Monocytes 0.6, Absolute Eosinophils 0.6, Absolute Basophils 0 11/01/17 2340: Troponin I 0.04 Assessment/Plan Assessment/Plan Diastolic CHF exacerbation in the context of lower respiratory tract infection. History of CAD with PCI in [facility] in 08/2016, stable ichemic disease clinically. Hypertension, slightly suboptimal BP control with losartan/bisoprolol alone, i would add amlodipine 5 mg daily. Change lasix 40 mg IV bid to 40 mg PO bid. Patient can be discharged at the discretion of the medical team, i would like to follow up with her as an outpatient given her CHF/CAD history/PCI... Continue telemetry? No
[2017-11-03 22:12] VITALS: BP 162/84
--- NOTE | 2017-11-04 06:13 | Discharge Summary ---
Visit Information Visit Dates Admission Date: 11/01/17 Discharge Date: 11/06/17 Hospital Course Course Attending Physician: Norma LAZO,Shirley Aponte Primary Care Physician: Star LAZO,[place]wood Hospital Course: 67-year-old female, nonsmoker with past medical history of hypertension, congestive heart failure, [place] status post permanent pacemaker in [facility] in August 2016 and hyperlipidemia came to ED with chief complaint of fever, chills, shortness of breath with productive cough and chest pain for last 1 week. ED course: Vitals: Temperature 98.6, pulse 84, respiratory rate 18, blood pressure 179/68, oxygen saturation 91% on room air. Labs: WBC count 9.4, hemoglobin 11.4, hematocrit 34.3, platelet count 227, sodium 138, potassium 5.2, BUN 25, creatinine 0.8, anion gap 12, BUNs/creatinine ratio 31.3, glucose 339, calcium 9.5, AST 26, ALT 16, alkaline phosphatase 76, troponin 0.02, proBNP 8300, albumin 3.7 Acute hypoxic respiratory failure due to acute on chronic diastolic heart failure: Patient presented with acute hypoxic respiratory failure due to acute on chronic diastolic heart failure. She was given supplemental oxygen so that she can maintain her saturation above 92%. On room air she was saturating 88% and later on she was saturating 86% on room air. She was kept on 2 L initially and then tapered down to 1 L oxygen and she was saturating 96%. Cardiology consult was placed and recommendations are followed. Her echocardiogram showed stage III diastolic heart failure with ejection fraction 65% with moderate to severe left ventricular hypertrophy. On presentation her proBNP was 8300. Patient was kept on IV Lasix and over the discharge that was changed to p.o. Lasix. Her losartan and bisoprolol were continued. Her T4 and free T4 were normal. Her oxygen has been tapered and she was on room and maintaining saturation above 92% before she was discharged. Patient was instructed to follow cardiology as outpatient after the discharge. Possible bronchitis: Initially patient was admitted with cough and yellow colored sputum possibly due to viral bronchitis. Her WBC count remained within normal limits and patient remained afebrile during hospital stay. Considering patient's presentation initially she was given 2 days course of antibiotics to cover community-acquired pneumonia. But later on her CT scan chest remained negative for pneumonia and patient remained afebrile and WBC count within normal limits. Blood cultures remain negative. Her antibiotics were discontinued as pneumonia was ruled out. Uncontrolled diabetes: Her HbA1c was 9.3 on admission and blood sugar level was 339 on admission. Accu -Chek were checked and patient was placed on insulin NovoLog according to sliding scale and insulin Levemir 20 units every afternoon. Her blood sugar remained within normal limits during hospital stay. After the discharge patient was instructed to take her home dose of Levemir and glimepiride. History of hypertension hyperlipidemia: We will continue her losartan. Her blood pressure remained high in 160s and 170s systolic. Cardiology recommended to add amlodipine 5 mg daily for better control of blood pressure. Her LDL level is 131. DVT prophylaxis: Mechanical and subcutaneous Lovenox CODE STATUS: Full code Allergies: Coded Allergies: No Known Allergies (11/01/17) Pertinent Lab Results: Chest x-ray on 11/01/2017: IMPRESSION: Small pleural effusions, right greater than left with mild pulmonary edema. Echocardiogram on 11/01/17: CONCLUSIONS Moderate-severe concentric LVH with normal cavity size. No wall motion abnormality and LVEF estimated at 65%. Grade III diastolic dysfunction. Pace maker lead lead visible in RV cavity. Mildly enlarged LA. Mild-moderate MR. Sclerotic aortic valve with mild stenosis. ALFRED calculated at 1.5 cm2 and mean gradient 25-30 mmHg. Mild aortic regurgitation. Moderate TR. RVSP estimated at 55mmHg. Normal pericardium without effusion. Chest CT scan 11/02/2017: IMPRESSION: 1. Low lung volumes are seen with dependent atelectasis in the right lower lobe. No focal consolidation seen to suspect a pneumonia. 2. A few scattered tiny bilateral solid noncalcified nodular densities are seen, doubtful clinical significance. Evaluation overall is limited due to motion artifact and low lung volumes. Assuming these findings are truly incidental, and if the patient has no known underlying risk factors, no routine follow-up is recommended. If the patient has underlying risk factors, optional CT scan follow-up in 12 months is recommended. 3. Cardiomegaly and ascending aortic aneurysm with maximal AP diameter of 4.3 cm. 4. Enlarged central pulmonary arteries, raising the suspicion of pulmonary arterial hypertension. Close clinical correlation is requested. 5. Enlarged thyroid gland with nodular substernal extension of the right lobe. Recommend further evaluation with thyroid ultrasound. 6. Small cyst in upper pole of left kidney. 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 Comments: Last Taken: 11/06/17 Time: 12:20 PM This prescription has been renewed Losartan Potassium (Cozaar) 50 MG TABLET 1 Tablet ORAL TWICE DAILY Qty = 60 Comments: Last Taken: 11/06/17 Time: 9:30 AM. This prescription has been renewed Start taking the following new medications: Atorvastatin Calcium (Lipitor) 10 MG TABLET 1 Tablet ORAL DAILY Qty = 30 No Refills Instructions: . Comments: Last Taken: 11/05/17 Time: 5:00 PM Amlodipine Besylate (Norvasc) 5 MG TABLET 1 Tablet ORAL DAILY Qty = 30 No Refills Instructions: . Comments: Last Taken: 11/06/17 Time: 9:30 AM The following medications have been changed: Old: Furosemide (Furosemide) 40 MG TABLET 1 Tablet ORAL TWICE DAILY Qty = 60 New: Furosemide (Furosemide) 40 MG TABLET 1 Tablet ORAL TWICE DAILY Qty = 60 Instructions: . Comments: Last Taken: 11/06/17 Time: 7:00 AM Copies To: Rashad LAZO,Ricky
[2017-11-04] MEDS ORDERED: NORVASC5 M1 PO (06:15)
[2017-11-04 06:55] VITALS: BP 168/70
--- NOTE | 2017-11-04 08:00 | PN- Housestaff ---
[facility] Subjective Follow-up For: Acute hypoxic respiratory failure due to acute on chronic diastolic congestive heart failure. Uncontrolled diabetes Tele-Events Since Last Visit: Patient remained in sinus rhythm with heart rate between 4857 Subjective: No overnight events. Patient remained afebrile. Seen and examined this morning. Patient is using 1 L of oxygen and maintaining saturation 96%. Patient is Kyrgyz speaking. She reported cough and chest congestion. We will try to taper her oxygen today. Review of Systems Constitutional: Denies: chills, fever. EENTM: Reports: no symptoms. Cardiovascular: Denies: chest pain, palpitations. Respiratory: Reports: cough. Denies: short of breath, sputum production. Gastrointestinal: Denies: abdominal pain, diarrhea, nausea, vomiting. Genitourinary: Reports: no symptoms. Neurological/Psychological: Reports: no symptoms. Objective Last 24 Hrs of Vital Signs/I&O Vital Signs Date Time Temp Pulse Resp B/P B/P Pulse O2 O2 Flow FiO2 Mean Ox Delivery Rate 11/04 0655 98.3 74 18 168/70 96 Nasal Cannula 11/03 2248 91 162/84 11/03 2212 98.0 91 18 162/84 95 11/03 2108 Nasal 1.0L Cannula 11/03 2046 95 Nasal 1.0L Cannula 11/03 1600 Nasal 1.0L Cannula 11/03 1505 98.1 66 20 142/62 92 Nasal 1.5L Cannula 11/03 0800 93 Nasal 2.0L Cannula 11/03 0757 89 Room Air Intake & Output 11/04 0800 11/04 0000 11/03 1600 Intake Total 240 800 Output Total 1500 Balance 240 -700 Intake, Oral 240 800 Output, Urine 1500 Patient 166 lb Weight Physical Exam General Appearance: Alert, Oriented X3, Cooperative Skin Temp/Moisture Exam: Warm/Dry Sepsis Skin Exam (color): Normal for Ethnicity HEENT: Atraumatic, PERRLA, EOMI Neck: Supple Cardiovascular: Normal S1, Normal S2, systolic murmer at aortic area Lungs: Clear to Auscultation Abdomen: Soft, No Tenderness Neurological: Normal Speech, Strength at 5/5 X4 Ext, Normal Tone Extremities: No Edema Assessment/Plan Assessment: 67-year-old female, nonsmoker with past medical history of hypertension, congestive heart failure, [place] status post permanent pacemaker in [facility] in August 2016 and hyperlipidemia came to ED with chief complaint of fever, chills, shortness of breath with productive cough and chest pain for last 1 week. Seeing the patient on telemetry floor following problems. Acute hypoxic respiratory failure due to acute on chronic diastolic heart failure: -Patient is desaturating to 88% on room air that is why she was getting supplemental oxygen. Today she is on 1L of oxygen and maintaining saturation 96 %. Patient desaturated to 86% on room air. -As patient reported that she had heart failure in the past and she had some fluid in the lung when she was in [facility]. And patient is on diuretics. On echocardiogram patient had stage III diastolic heart failure with moderate to severe concentric left ventricular hypertrophy and ejection fraction 65%. -Her proBNP is 8300 and imaging studies showed bilateral pleural effusions and mild pulmonary edema. -Continue IV Lasix 40 mg twice a day -Continue losartan 50 mg twice a day -Continue bisoprolol 10 mg twice a day -Monitor her input and output and daily weight -Echocardiogram -Follow up cardiology recommendations. -Her TSH and free T4 are within normal limits. Cough and sputum: -As patient reported fever and chills for last 1 week, possibly patient had bronchitis. Her WBC count is within normal limits and she is afebrile on presentation. Pneumonia was ruled out. As her imaging studies remain negative for any pneumonia and blood cultures remain negative. -Her azithromycin and ceftriaxone has been discontinued as her CT scan chest remained negative for pneumonia. Patient received 2 days of antibiotics. -Patient remained afebrile and her WBC count remained within normal limits. Uncontrolled diabetes: -On admission her blood sugar level was 339 -HbA1c is 9.3 -Accu-Cheks, FBS 138 -Insulin according to sliding scale -Continue insulin Levemir 20 units in p.m. History of hypertension hyperlipidemia: -Continue losartan -Amlodipine 5 mg daily has been added to her antihypertensive medications. For better control of her blood pressure. -Patient is not on any antihyperlipidemic medication. Her LDL level is 131. -Start Lipitor 10 mg daily. DVT prophylaxis: Mechanical and subcutaneous Lovenox CODE STATUS: Full code Problem List: 1. Congestive heart failure 2. Uncontrolled diabetes mellitus Pain Ratin Pain Location: none Pain Goal: Remain pain free Pain Plan: pain pathway Tomorrow's Labs & Rationales: none Norma LAZO,Shirley 11/04/17 1036: Attending MD Review Statement Attending Statement Attending MD Statement: examined this patient, discuss w/resident/PA/FRONT DESK HOST, agreed w/resident/PA/FRONT DESK HOST, discussed with family, reviewed EMR data (avail), discussed with nursing, discussed with case mgmt, reviewed images Attending Assessment/Plan: 67-year-old Kyrgyz speaking female past medical history of diabetes and hypertension here with acute diastolic heart failure. We got a CT chest which showed no pneumonia and showed congestive heart failure. We are diuresing her with IV Lasix and optimizing her blood pressure regimen.
--- NOTE | 2017-11-04 08:27 | PN- Student ---
Subjective Subjective: This is a 67-year-old female, unilingual Uzbek, with past medical history of hypertension, congestive heart failure, [place] status post permanent pacemaker in [facility] in August 2016 and hyperlipidemia came to ED 3 days ago with chief complaint of CHF exacerbation. The interview today was translated by her son. The patient reports improved epigastric pain with decreased bad taste in her mouth. She states that there is still congestion in her chest, but unable to produce phlegm. She slept well last night. The patient denies fever, chills, headache, SOB, chest pain, abdominal pain, numbness, tingling, decreased in appetite, changes in urinary/bowel movements. No additional complaint. Objective Results Results: Laboratory Tests 11/03/17 0607: Anion Gap 9, Estimated GFR 55 L, BUN/Creatinine Ratio 27.0 H, Magnesium 1.7, Troponin I 0.02 11/02/17 0713: Anion Gap 10, Estimated GFR > 60, BUN/Creatinine Ratio 27.5 H, Triglycerides 105, Cholesterol 185, LDL Cholesterol, Calc 131 H, HDL Cholesterol 33 L, Cholesterol/HDL Ratio 6 H, CBC w Diff NO MAN DIFF REQ, RBC 4.12 L, MCV 84.4, MCH 27.9, MCHC 33.1, RDW 13.7, MPV 10.4, Gran % 60.6, Lymphocytes % 19.2 L, Monocytes % 9.8 H, Eosinophils % 9.9 H, Basophils % 0.5, Absolute Granulocytes 3.4, Absolute Lymphocytes 1.1 L, Absolute Monocytes 0.6, Absolute Eosinophils 0.6, Absolute Basophils 0 11/01/17 2340: Troponin I 0.04 11/01/17 1704: Troponin I 0.03 11/01/17 1631: Urine Color STRAW, Urine Clarity CLEAR, Urine pH 6.0, Ur Specific [place] 1.020, Urine Protein 100 H, Urine Ketones NEG, Urine Nitrite NEG, Urine Bilirubin NEG, Urine Urobilinogen 0.2, Ur Leukocyte Esterase TRACE H, Ur Microscopic SEDIMENT EXAMINED, Urine RBC RARE, Urine WBC 1-3 H, Ur Epithelial Cells RARE, Urine Bacteria RARE H, Urine Hemoglobin SMALL H, Urine Glucose NEG 11/01/17 1626: Troponin I Cancelled 11/01/17 1105: Anion Gap 12, Estimated GFR > 60, BUN/Creatinine Ratio 31.3 H, Glucose 339 H, Hemoglobin A1c 9.3 H, Calcium 9.5, Total Bilirubin 0.8, AST 26, ALT 16, Alkaline Phosphatase 76, Troponin I 0.02, Tcq-O-Tksjqskobcb Pept 8300 H, Total Protein 7.3, Albumin 3.7, Globulin 3.6, Albumin/Globulin Ratio 1.0 L, TSH 0.524 , Free T4 1.90, CBC w Diff NO MAN DIFF REQ, RBC 4.03 L, MCV 85.2, MCH 28.4, MCHC 33.3, RDW 13.3, MPV 10.0, Gran % 82.9 H, Lymphocytes % 9.4 L, Monocytes % 4.3, Eosinophils % 3.3, Basophils % 0.1, Absolute Granulocytes 7.8 H, Absolute Lymphocytes 0.9 L, Absolute Monocytes 0.4, Absolute Eosinophils 0.3, Absolute Basophils 0 Microbiology 11/01 1631 URINE ROUT: Urine Culture - COMP 11/01 161 LOWER RESP: Respiratory Culture - CAN Cancelled: SPECIMEN NOT RECEIVED IN LABORATORY 11/01 161 LOWER RESP: Gram Stain - CAN Cancelled: SPECIMEN NOT RECEIVED IN LABORATORY 11/01 1608 BLOOD: Blood Culture - RES 11/01 1601 BLOOD: Blood Culture - RES Review of Systems Review of Systems Constitutional: Denies: chills, diaphoresis, fever, malaise, weakness, unexplained weight loss. EENTM: Denies: blurred vision, visual changes, eye pain, ear pain, epistaxis, throat pain, mouth pain. Cardiovascular: Denies: chest pain, edema, orthopena, palpitations, peripheral edema, syncope. Respiratory: Reports: see HPI, cough. Denies: hemoptysis, orthopnea, short of breath, sputum production, stridor. GI: Denies: abdominal pain, bloating, constipation, diarrhea, distention, bowel incontinence, melena, nausea, bloody stool, changes in stool, vomiting, steatorrhea. Genitourinary: Denies: no symptoms. Musculoskeletal: Denies: no symptoms. Skin: Denies: no symptoms. Neurological/Psychological: Denies: tingling, tremors, weakness. Hematologic/Endocrine: Denies: no symptoms. PHYSICAL EXAM Last 24hrs of Vital Signs Vital Signs Date Time Temp Pulse Resp B/P B/P Pulse O2 O2 Flow FiO2 Mean Ox Delivery Rate 11/04 0655 98.3 74 18 168/70 96 Nasal Cannula 11/03 2248 91 162/84 11/03 2212 98.0 91 18 162/84 95 11/03 2108 Nasal 1.0L Cannula 11/03 2046 95 Nasal 1.0L Cannula 11/03 1600 Nasal 1.0L Cannula 11/03 1505 98.1 66 20 142/62 92 Nasal 1.5L Cannula Physical Exam General Appearance Alert, Oriented X3, Cooperative, No Acute Distress Skin No Rashes, No Breakdown, No Significant Lesion HEENT Atraumatic, PERRLA, EOMI Neck Supple, No JVD, No thryomegaly Cardiovascular Regular Rate, Normal S1, Normal S2, No Murmurs Lungs Normal Air Movement (bilateral diffuse crackles) Abdomen Normal Bowel Sounds, Soft, No Tenderness, No Hepatospenomegaly Neurological Normal Gait, Normal Speech, Strength at 5/5 X4 Ext, Normal Tone, Sensation Intact Extremities No Clubbing, No Cyanosis, No Edema, Normal Pulses Vascular Normal Pulses, Pulses Symmetrical Assessment/Plan Assessment: 67-year-old female, unilingual Uzbek, with past medical history of hypertension, congestive heart failure, [place] status post permanent pacemaker in [facility] in August 2016 and hyperlipidemia came to ED 3 days ago presenting with CHF exacerbation. Physical exam revealed no additional abnormal findings from baseline. Afebrile. Cough becoming non-productive. Labs are stable. Plan - Continue current medication therapy - Pulse ox monitoring on ambulation - Attempt to discontinue O2 supplement as tolerated Plan: This is a 67-year-old female, unilingual Uzbek, with past medical history of hypertension, congestive heart failure, [place] status post permanent pacemaker in [facility] in August 2016 and hyperlipidemia came to ED 3 days ago with chief complaint of CHF exacerbation. Stable vitals and labs. Afebrile over night. Physical exam was improved compared to yesterday. #CHF exacerbation - On 1 L of O2 supplement sating at 94% - Stable on current therapy as symptoms gradually improve - Will obtain PT evaluation and assess for home O2 - Continue medication and monitor pulse ox #Epigastric pain - Likely GERD (resolved) - Counseled patient to continue Omeprazole PO when discharge
[2017-11-04] MEDS ORDERED: FUROSEMIDE40 M1 PO (08:49)
[2017-11-04] MEDS ORDERED: LIPITOR10 M1 PO (12:05)
[2017-11-04 15:04] VITALS: BP 118/50
[2017-11-04 22:54] VITALS: BP 158/70
--- NOTE | 2017-11-04 23:56 | PN- Cardiology ---
Subjective Subjective: Still requiring O2, although small concentration (1L/min). Clinically much better. Fluid balance relatively neutral X 24H. Denies chest pains. Objective Vital Signs and I&Os Vital Signs Date Time Temp Pulse Resp B/P B/P Pulse O2 O2 Flow FiO2 Mean Ox Delivery Rate 11/04 2254 98.3 82 16 158/70 94 Nasal 1.0L Cannula 11/04 2148 80 148/80 11/04 1600 94 Nasal 1.0L Cannula 11/04 1504 98.4 80 18 118/50 94 Nasal 1.0L Cannula 11/04 1138 98.8 11/04 1137 94 Nasal 1.0L Cannula 11/04 0848 74 168/70 11/04 0848 74 168/70 11/04 0800 96 Nasal 1.0L Cannula 11/04 0655 98.3 74 18 168/70 96 Nasal Cannula Intake & Output 11/04 1600 11/04 0800 11/04 0000 11/03 1600 11/03 0800 11/03 0000 Intake Total 720 240 800 340 200 Output Total 1500 600 Balance 720 240 -700 -260 200 Intake, IV 100 Intake, Oral 720 240 800 240 200 Number 0 Bowel Movements Output, Urine 1500 600 Patient 166 lb 165 lb Weight Weight Bed scale Measurement Method Physical Exam: General Appearance: no apparent distress, alert, awake, comfortable Ears, Nose, Throat: normal ENT inspection Neck: normal inspection, full range of motion, trachea mid line (no JVD) Respiratory: chest non-tender, rhonchi Cardiovascular: regular rate/rhythm, systolic murmur (2/6 LUSB) Gastrointestinal: normal bowel sounds, soft, non-tender Extremities: normal capillary refill, no edema Current Medications: Current Medications Sig/Elvia Start time Last Medication Dose Route Stop Time Status Admin Acetaminophen 650 MG Q6P PRN 11/01 1845 AC PO Acetaminophen 1,000 MG Q6P PRN 11/01 1845 AC 11/03 IV 0617 Albuterol Sulfate 3 ML Q4P PRN 11/01 2200 DC 11/02 INH 1832 Amlodipine Besylate 5 MG DAILY 11/04 09 AC 11/04 PO 0848 Aspirin 81 MG DAILY 11/03 09 AC 11/04 PO 0845 Atorvastatin Calcium 10 MG 1700 11/04 1700 AC 11/04 PO 1733 Benzonatate 100 MG TID 11/02 1815 AC 11/04 PO 2146 Bisacodyl 5 MG DAILY 11/02 0930 AC 11/04 PO 0845 Bisoprolol Fumarate 10 MG BID 11/01 2100 AC 11/04 PO 2148 Enoxaparin Sodium 40 MG DAILY 11/02 0900 AC 11/04 SC 0845 Furosemide 40 MG 0800 & 1700 11/04 1700 AC 11/04 IV 1734 Furosemide 40 MG 7:30 AM, & 4:30 PM 11/04 1630 CAN PO Furosemide 40 MG 0800 & 1700 11/01 1700 DC 11/04 IV 0847 Guaifenesin 600 MG Q12 11/04 09 AC 11/04 PO 2146 Guaifenesin 0 .STK-MED ONE 11/04 0843 DC PO Insulin Aspart 0 TIDAC/HS 11/01 1700 AC 11/04 SC 1733 Insulin Detemir 20 UNITS QPM 11/01 2100 AC 11/04 SC 2149 Losartan Potassium 50 MG BID 11/01 2100 AC 11/04 PO 2148 Melatonin 5 MG AT BEDTIME 11/02 2099 AC 11/04 PO 2146 Omeprazole 40 MG DAILY AC 11/03 0930 AC 11/04 PO 0616 Patient Medication 1 ED ONE ONE 11/04 1845 DC Teaching ED 11/04 1846 Polyethylene Glycol 17 GM DAILY 11/02 929 AC 11/04 PO 0845 Senna/Docusate Sodium 1 TAB BID 11/02 2099 AC 11/04 PO 2146 Simethicone 80 MG ONCE ONE 11/04 211 DC 11/04 PO 11/04 211 2148 Results Last 48 Hrs of Labs/Mics: Laboratory Tests 11/03/17 0607: Anion Gap 9, Estimated GFR 55 L, BUN/Creatinine Ratio 27.0 H, Magnesium 1.7, Troponin I 0.02 Assessment/Plan Assessment/Plan Diastolic CHF exacerbation in the context of lower respiratory tract infection. History of CAD with PCI in [facility] in 08/2016, stable ichemic disease clinically. Hypertension, btter control with losartan/bisoprolol/amlodipine. Change lasix 40 mg IV bid to 40 mg PO bid. Patient can be discharged at the discretion of the medical team, i would like to follow up with her as an outpatient given her CHF/CAD history/PCI... Continue telemetry? No
--- NOTE | 2017-11-05 05:35 | PN- Housestaff ---
Hiram Dudley 11/05/17 0525: Subjective Follow-up For: Diastolic CHF exacerbation Acute hypoxic respiratory failure Uncontrolled diabetes mellitus Complaints: language barrier patient only speaking Ukrainian Tele-Events Since Last Visit: Paced rhythm 59-65 bpm with some PVCs Subjective: Review the patient lying no cough at all on the bed not in any acute distress Review of Systems Constitutional: Denies: chills, fever. Comments: Could not respond to review of system questions due to language barrier Objective Last 24 Hrs of Vital Signs/I&O Vital Signs Date Time Temp Pulse Resp B/P B/P Pulse O2 O2 Flow FiO2 Mean Ox Delivery Rate 11/05 0000 93 Nasal 1.0L Cannula 11/04 2254 98.3 82 16 158/70 94 Nasal 1.0L Cannula 11/04 2148 80 148/80 11/04 1600 94 Nasal 1.0L Cannula 11/04 1504 98.4 80 18 118/50 94 Nasal 1.0L Cannula 11/04 1138 98.8 11/04 1137 94 Nasal 1.0L Cannula 11/04 0848 74 168/70 11/04 0848 74 168/70 11/04 0800 96 Nasal 1.0L Cannula 11/04 0655 98.3 74 18 168/70 96 Nasal Cannula Intake & Output 11/05 0800 11/05 0000 11/04 1600 Intake Total 240 720 Output Total Balance 240 720 Intake, Oral 240 720 Number 0 Bowel Movements Patient 167 lb Weight Physical Exam General Appearance: Alert, Cooperative, No Acute Distress Skin: No Rashes Skin Temp/Moisture Exam: Warm/Dry Sepsis Skin Exam (color): Normal for Ethnicity HEENT: Atraumatic, Mucous Membr. moist/pink Neck: Supple, No JVD Cardiovascular: Regular Rate, Normal S1, Normal S2, systolic murmur 2 out of 6 at the aortic area Lungs: Clear to Auscultation Abdomen: Normal Bowel Sounds, Soft Neurological: Normal Speech, Normal Tone Current Medications: Current Medications Sig/Elvia Start time Last Medication Dose Route Stop Time Status Admin Acetaminophen 650 MG Q6P PRN 11/01 1844 AC PO Acetaminophen 1,000 MG Q6P PRN 11/01 1844 AC 11/03 IV 0617 Albuterol Sulfate 3 ML Q4P PRN 11/01 2200 DC 11/02 INH 1832 Amlodipine Besylate 5 MG DAILY 11/04 0900 AC 11/04 PO 0848 Aspirin 81 MG DAILY 11/03 0900 AC 11/04 PO 0845 Atorvastatin Calcium 10 MG 1700 11/04 1700 AC 11/04 PO 1733 Benzonatate 100 MG TID 11/02 1815 AC 11/04 PO 2146 Bisacodyl 5 MG DAILY 11/02 0930 AC 11/04 PO 0845 Bisoprolol Fumarate 10 MG BID 11/01 2100 AC 11/04 PO 2148 Enoxaparin Sodium 40 MG DAILY 11/02 0900 AC 11/04 SC 0845 Furosemide 40 MG 0800 & 1700 11/04 1700 AC 11/04 IV 1734 Furosemide 40 MG 7:30 AM, & 4:30 PM 11/04 1630 CAN PO Furosemide 40 MG 0800 & 1700 11/01 1700 DC 11/04 IV 0847 Guaifenesin 600 MG Q12 11/04 09 AC 11/04 PO 2146 Guaifenesin 0 .STK-MED ONE 11/04 0843 DC PO Insulin Aspart 0 TIDAC/HS 11/01 1700 AC 11/04 SC 1733 Insulin Detemir 20 UNITS QPM 11/01 2100 AC 11/04 SC 2149 Losartan Potassium 50 MG BID 11/01 2100 AC 11/04 PO 2148 Melatonin 5 MG AT BEDTIME 11/02 2100 AC 11/04 PO 2146 Omeprazole 40 MG DAILY AC 11/03 0930 AC 11/04 PO 0616 Patient Medication 1 ED ONE ONE 11/04 1845 [facility] ED 11/04 1846 Polyethylene Glycol 17 GM DAILY 11/02 0930 11/04 PO 0845 Senna/Docusate Sodium 1 TAB BID 11/02 2100 AC 11/04 PO 2146 Simethicone 80 MG ONCE ONE 11/04 211 DC 11/04 PO 11/048 Assessment/Plan Assessment: 67-year-old female, nonsmoker with past medical history of hypertension, congestive heart failure, [place] status post permanent pacemaker in [facility] in August 2016 and hyperlipidemia came to ED with chief complaint of fever, chills, shortness of breath with productive cough and chest pain for last 1 week. Acute hypoxic respiratory failure due to acute on chronic diastolic heart failure: Patient is desaturating to 88% on room air that is why she was getting supplemental oxygen. Currently the patient on 1L of oxygen and maintaining saturation 96%. Patient desaturated to 86% on room air. On echocardiogram patient had stage III diastolic heart failure with moderate to severe concentric left ventricular hypertrophy and ejection fraction 65%. Her proBNP is 8300 and imaging studies showed bilateral pleural effusions and mild pulmonary edema. Continue with Lasix diuresis, review ambulatory sats and taper down oxygen as patient improves. Cough and sputum: Patient reported fever and chills for last 1 week, she also reported fever up to 39C while at home. However on presentation the patient was afebrile and had normal white counts. She was put on prophylactic azithromycin and ceftriaxone for treatment of pneumonia with negative x-ray and repeated CT scan was also negative and because of that antibiotic were discontinued. Patient continued to remain afebrile and with normal white count. Uncontrolled diabetes: Patient has history of diabetes mellitus and is on insulin at home. On admission her blood sugar level was 339, HbA1c is 9.3. She was continued on insulin sliding scale and so far sugar control in hospital has been good. Patient will need education on the importance of adhering to a diabetic diet and taking her insulin consistently to reduce complication of uncontrolled diabetes. History of hypertension hyperlipidemia: Patient started on heart health diet and continued on her home dose of losartan. Blood pressure remained not well controlled and because of that was started on amlodipine 5 mg daily for better control of blood pressure. This patient with coronary artery disease was not on statin and was started on Lipitor 10 mg daily. Patient will be discharged to continue with this medications upon leaving the hospital. Problem List: 1. Uncontrolled diabetes mellitus 2. Congestive heart failure Pain Ratin Pain Location: None Pain Goal: Remain pain free Pain Plan: When necessary pain meds Tomorrow's Labs & Rationales: Check renal function is patient still on IV Lasix DVT/Prophylaxis: pharmacological Berta LAZO,Amir 11/05/17 1435: Attending MD Review Statement Attending Statement Attending MD Statement: examined this patient, discuss w/resident/PA/PRESS SET UP, agreed w/resident/PA/PRESS SET UP, discussed with family, reviewed EMR data (avail), discussed with nursing Attending Assessment/Plan: pt was seen and evaluated. Reports feeling better, c/o intermittent cough. --cont to titrate oxygen --cont current meds --rest of the plan as per resident;s note
[2017-11-05 07:31] VITALS: BP 138/68
[2017-11-05 14:22] VITALS: BP 136/64
[2017-11-05 22:22] VITALS: BP 110/48
[2017-11-06 06:52] VITALS: BP 146/67
--- NOTE | 2017-11-06 08:43 | PN- Housestaff ---
Darío Tello 11/06/17 0843: Subjective Follow-up For: Diastolic CHF exacerbation Acute hypoxic respiratory failure Uncontrolled diabetes Complaints: language barrier kept patient from expressing many complaints. however, she did gesture that her stomach was still painful, likely her GERD Subjective: Patient seen lying in bed, no cough. GERD still seems to be a problem, minor distress. No other complaints attempted to communicate. Review of Systems Constitutional: Reports: no symptoms. Objective Last 24 Hrs of Vital Signs/I&O Vital Signs Date Time Temp Pulse Resp B/P B/P Pulse O2 O2 Flow FiO2 Mean Ox Delivery Rate 11/06 1015 92 Room Air Room Air 11/06 0946 88 Room Air Room Air 11/06 0938 71 126/56 11/06 0938 71 126/56 11/06 0652 98.1 69 20 146/67 92 Room Air 11/06 0000 92 Room Air 11/05 2222 98.3 80 20 110/48 92 Room Air 11/05 2050 92 110/60 11/05 1600 Nasal Cannula 11/05 1422 98.1 81 20 136/64 93 Nasal Cannula Intake & Output 11/06 1600 11/06 0800 11/06 0000 Intake Total 200 450 Output Total 550 Balance 200 -100 Intake, IV 0 Intake, Oral 200 450 Number 0 Bowel Movements Output, Urine 550 Patient 167 lb Weight Weight Bed scale Measurement Method Physical Exam General Appearance: Alert, Oriented X3, Cooperative, Mild Distress Skin: No Rashes, No Breakdown, No Significant Lesion Skin Temp/Moisture Exam: Warm/Dry Cardiovascular: Regular Rate, Normal S1, Normal S2, No Murmurs, Gallops, Rubs Lungs: Clear to Auscultation, Normal Air Movement Abdomen: Soft, No Tenderness, No Hepatospenomegaly Neurological: Normal Speech, Strength at 5/5 X4 Ext, Normal Tone, Sensation Intact Current Medications: Current Medications Sig/Elvia Start time Last Medication Dose Route Stop Time Status Admin Acetaminophen 650 MG Q6P PRN 11/01 1844 AC 11/06 PO 0939 Acetaminophen 1,000 MG Q6P PRN 11/01 1844 AC 11/03 IV 0617 Amlodipine Besylate 5 MG DAILY 11/04 09 AC 11/06 PO 0938 Aspirin 81 MG DAILY 11/03 09 AC 11/06 PO 0938 Atorvastatin Calcium 10 MG 1700 11/04 1700 AC 11/05 PO 1650 Benzonatate 0 .STK-MED ONE 11/05 1424 DC PO Benzonatate 100 MG TID 11/02 1815 AC 11/06 PO 0939 Bisacodyl 5 MG DAILY 11/02 0930 AC 11/06 PO 0938 Bisoprolol Fumarate 10 MG BID 11/01 2100 AC 11/06 PO 1216 Calcium Carbonate 500 MG ONCE ONE 11/06 0430 DC 11/06 PO 11/06 0431 0514 Enoxaparin Sodium 40 MG DAILY 11/02 0900 AC 11/06 SC 0938 Famotidine 20 MG ONCE ONE 11/06 1015 DC 11/06 PO 11/06 1016 1216 Furosemide 40 MG 7:30 AM, & 4:30 PM 11/06 0730 AC 11/06 PO 0702 Furosemide 40 MG 0800 & 1700 11/04 1700 DC 11/05 IV 11/05 2200 1650 Guaifenesin 600 MG Q12 11/04 09 AC 11/06 PO 0938 Guaifenesin/Codeine 10 ML Q4P PRN 11/05 1000 AC 11/06 Phosphate PO 0938 Insulin Aspart 0 TIDAC/HS 11/01 1700 AC 11/06 SC 1216 Insulin Detemir 20 UNITS QPM 11/01 2100 AC 11/05 SC 2047 Losartan Potassium 50 MG BID 11/01 2100 AC 11/06 PO 0938 Melatonin 5 MG AT BEDTIME 11/02 2099 AC 11/05 PO 2048 Omeprazole 40 MG BID 11/05 2100 AC 11/06 PO 0938 Polyethylene Glycol 17 GM DAILY 11/02 0930 AC 11/06 PO 0938 Senna/Docusate Sodium 1 TAB BID 11/02 2099 AC 11/06 PO 0939 Last 24 Hrs of Lab/Keith Results Last 24 Hrs of Labs/Mics: Laboratory Tests 11/06/17 0630: Anion Gap 9, Estimated GFR 49 L, BUN/Creatinine Ratio 40.9 H, Magnesium 2.1 Assessment/Plan Assessment: 67-year-old female, nonsmoker with past medical history of hypertension, congestive heart failure, [place] status post permanent pacemaker in [facility] in August 2016 and hyperlipidemia came to ED with chief complaint of fever, chills, shortness of breath with productive cough and chest pain for last 1 week. Acute hypoxic respiratory failure due to acute on chronic diastolic heart failure: Patient is desaturating to 88% on room air that is why she was getting supplemental oxygen. Currently the patient on 1L of oxygen and maintaining saturation 96%. Patient desaturated to 86% on room air. On echocardiogram patient had stage III diastolic heart failure with moderate to severe concentric left ventricular hypertrophy and ejection fraction 65%. Her proBNP is 8300 and imaging studies showed bilateral pleural effusions and mild pulmonary edema. Continue with Lasix diuresis, review ambulatory sats and taper down oxygen as patient improves. Cough and sputum: Patient reported fever and chills for last 1 week, she also reported fever up to 39C while at home. However on presentation the patient was afebrile and had normal white counts. She was put on prophylactic azithromycin and ceftriaxone for treatment of pneumonia with negative x-ray and repeated CT scan was also negative and because of that antibiotic were discontinued. Patient continued to remain afebrile and with normal white count. Uncontrolled diabetes: Patient has history of diabetes mellitus and is on insulin at home. On admission her blood sugar level was 339, HbA1c is 9.3. She was continued on insulin sliding scale and so far sugar control in hospital has been good. Patient will need education on the importance of adhering to a diabetic diet and taking her insulin consistently to reduce complication of uncontrolled diabetes. History of hypertension hyperlipidemia: Patient started on heart health diet and continued on her home dose of losartan. Blood pressure remained not well controlled and because of that was started on amlodipine 5 mg daily for better control of blood pressure. This patient with coronary artery disease was not on statin and was started on Lipitor 10 mg daily. Patient will be discharged to continue with this medications upon leaving the hospital. DVT prophylaxis: Lovenox and ALPS consistent carbohydrate 1 Patient is full code Problem List: 1. Uncontrolled diabetes mellitus 2. Congestive heart failure Pain Ratin Pain Location: stomach Pain Goal: Pain 4 or less Pain Plan: antacids and prn pain meds Tomorrow's Labs & Rationales: none; planned discharge today Berta LAZO,Amir 11/06/17 1223: Attending MD Review Statement Attending Statement Attending Statement: examined this patient, discuss w/resident/PA/FOREIGN EXCHANGE STUDENT COORDINATOR, agreed w/resident/PA/FOREIGN EXCHANGE STUDENT COORDINATOR, discussed with family, reviewed EMR data (avail), discussed with nursing Attending Assessment/Plan: Pt was seen and evaluated. Reports feeling better LUNGS: mild basilar crackles o/w clear. --appreciate Cards eval --D/C home on Lasix --pt will need to f/u with Cards as outpt --rest of the plan as per resident's note
[2017-11-06 09:38] VITALS: BP 126/56
--- NOTE | 2017-11-06 10:49 | PN- Cardiology ---
Subjective Subjective: Shortness of breath better. No chest pain. No palpitations. No diaphoresis. Objective Vital Signs and I&Os Vital Signs Date Time Temp Pulse Resp B/P B/P Pulse O2 O2 Flow FiO2 Mean Ox Delivery Rate 11/06 0946 88 Room Air Room Air 11/06 0938 71 126/56 11/06 0938 71 126/56 11/06 0652 98.1 69 20 146/67 92 Room Air 11/06 0000 92 Room Air 11/05 2222 98.3 80 20 110/48 92 Room Air 11/05 2050 92 110/60 11/05 1600 Nasal Cannula 11/05 142 98.1 81 20 136/64 93 Nasal Cannula Intake & Output 11/06 1600 11/06 0800 11/06 0000 11/05 1600 11/05 0800 11/05 0000 Intake Total 200 450 700 240 240 Output Total 550 200 450 Balance 200 -100 500 -210 240 Intake, IV 0 Intake, Oral 200 450 700 240 240 Number 0 Bowel Movements Output, Urine 550 200 450 Patient 167 lb 167 lb Weight Weight Bed scale Measurement Method Physical Exam: Gen: NAD HEENT: normal Lungs: clear to auscultation, normal resp. effort Heart: RRR, S1, S2, 2/6 systolic murmur Abdomen: Soft, nontender, no masses Extremities: No clubbing, cyanosis, or edema. Neuro: Alert and oriented x 3, cranial nerves intact Current Medications: Current Medications Sig/Elvia Start time Last Medication Dose Route Stop Time Status Admin Acetaminophen 650 MG Q6P PRN 11/01 184 AC 11/06 PO 39 Acetaminophen 1,000 MG Q6P PRN 11/01 184 AC 11/03 IV 0617 Amlodipine Besylate 5 MG DAILY 11/04 09 AC 11/06 PO 0938 Aspirin 81 MG DAILY 11/03 09 AC 11/06 PO 0938 Atorvastatin Calcium 10 MG 1700 11/04 1700 AC 11/05 PO 1650 Benzonatate 0 .STK-MED ONE 11/05 1424 DC PO Benzonatate 100 MG TID 11/02 1815 AC 11/06 PO 0939 Bisacodyl 5 MG DAILY 11/02 0930 AC 11/06 PO 0938 Bisoprolol Fumarate 10 MG BID 11/01 2100 AC 11/05 PO 2048 Calcium Carbonate 500 MG ONCE ONE 11/06 0430 DC 11/06 PO 11/06 0431 0514 Enoxaparin Sodium 40 MG DAILY 11/02 09 AC 11/06 SC 0938 Famotidine 20 MG ONCE ONE 11/06 1015 DC PO 11/06 1016 Furosemide 40 MG 7:30 AM, & 4:30 PM 11/06 0730 AC 11/06 PO 0702 Furosemide 40 MG 0800 & 1700 11/04 1700 DC 11/05 IV 11/05 2200 1650 Guaifenesin 600 MG Q12 11/04 09 AC 11/06 PO 0938 Guaifenesin/Codeine 10 ML Q4P PRN 11/05 1000 AC 11/06 Phosphate PO 0938 Insulin Aspart 0 TIDAC/HS 11/01 1700 AC 11/06 SC 0837 Insulin Detemir 20 UNITS QPM 11/01 2100 AC 11/05 SC 2047 Losartan Potassium 50 MG BID 11/01 2100 AC 11/06 PO 0938 Magnesium Oxide 400 MG ONE ONE 11/05 1145 DC 11/05 PO 11/05 1146 1349 Melatonin 5 MG AT BEDTIME 11/02 2099 AC 11/05 PO 2048 Omeprazole 40 MG BID 11/05 2100 AC 11/06 PO 0938 Polyethylene Glycol 17 GM DAILY 11/02 09 AC 11/06 PO 0938 Senna/Docusate Sodium 1 TAB BID 11/02 2099 AC 11/06 PO 0939 Results Last 48 Hrs of Labs/Mics: Laboratory Tests 11/06/17 0630: Anion Gap 9, Estimated GFR 49 L, BUN/Creatinine Ratio 40.9 H, Magnesium 2.1 11/05/17 0610: Anion Gap 10, Estimated GFR > 60, BUN/Creatinine Ratio 37.8 H, Magnesium 1.9 Recent Imaging Studies: Chest x-ray: Small pleural effusions, right greater than left with mild pulmonary edema. Assessment/Plan Assessment/Plan Assessment: 1. History of CAD, stable 2. GERD 3. Acute on chronic HFpEF, improved with diuresis 4. Mild aortic stenosis with moderate TR and mild to moderate MR. Plan: * Okay for discharge from cardiac standpoint. * Follow up in the office with Dr. Solorzano in 1 week * Would discharge on Lasix 40 mg p.o. twice daily Continue telemetry? No
[2017-11-06] MEDS ORDERED: LIPITOR10 M1 PO (11:05)
[2017-11-06] MEDS ORDERED: NORVASC5 M1 PO (11:05)
[2017-11-06] MEDS ORDERED: COZAAR50 M1 PO (12:53)
[2017-11-06] MEDS ORDERED: BISOPROLOL FUMA10 M1 PO (12:53)
[2017-11-06] MEDS ORDERED: FUROSEMIDE40 M1 PO (13:01)
== END 2017-11-06 13:00 | DRG 291 ==
LOC: ERH 10:29 → ERHI 14:50 → 1NO 14:50 → EDBEDREQ 16:06 → ENRESERV 16:17 → ENTRNSPT 17:31 → EDTRNSPTSTS 17:37 → 1NO 17:51 → CMPTRNSPT 18:04 → 1NO 11-02 07:42 → ENPENDDIS 11-06 11:17 → ENTRNSPT 11-06 12:41 → 1NO 11-06 12:49 → EDTRNSPT 11-06 12:56 → EDTRNSPTSTS 11-06 12:56 → 1NO 11-06 13:00 → CMPTRNSPT 11-06 13:22
PROVIDERS: Physician Assistant Medical; Preventive Medicine Public Health & General Preventive Medicine
DX: I11.0 Hypertensive heart disease with heart failure (principal); J96.01 Acute respiratory failure with hypoxia; I50.33 Acute on chronic diastolic (congestive) heart failure; E78.5 Hyperlipidemia, unspecified; I25.2 Old myocardial infarction; Z95.0 Presence of cardiac pacemaker; E11.65 Type 2 diabetes mellitus with hyperglycemia; Z79.4 Long term (current) use of insulin; Z79.84 Long term (current) use of oral hypoglycemic drugs; E87.5 Hyperkalemia; I25.10 Atherosclerotic heart disease of native coronary artery without angina pectoris; Z98.61 Coronary angioplasty status; I35.0 Nonrheumatic aortic (valve) stenosis; K21.9 Gastro-esophageal reflux disease without esophagitis
CPT/HCPCS: 1NP; 1NSP; 36592; 71046; 81001; 82436; 87040; 87070; 87086; 93005; 93010; 93306; 97116-GO; 97161-GP; 97530-GO; J0131; J0456; J0696; J1650; J1940; J3490; J7040; Q2036